=== PATIENT | female | born 1955 | race Caucasian/White ===

== ENCOUNTER → 2016-12-26 | Outpatient (REF) | payer BC ==
[~2016-12-26] MED LIST: /CELE20CA; /ESOM40CA; /WARF25TA; /WARF5TA; MYLI40DR; PERC5TAB8; PERC7.5T8
== END ==
LOC: M SFHCPLAZ 12:17
PROVIDERS: ATTEND Internal Medicine
DX: R06.02 Shortness of breath (principal); Z98.84 Bariatric surgery status; Z79.890 Hormone replacement therapy; E78.00 Pure hypercholesterolemia, unspecified; E55.9 Vitamin D deficiency, unspecified; Z53.9 Procedure and treatment not carried out, unspecified reason

== ENCOUNTER → 2017-01-01 | Outpatient (CLI) | payer BC ==
[2017-01-01 07:27] LABS: MEAN CORPUSCULAR HEMOGLOBIN 29.1 pg (27.0-33.0); MEAN CORPUSCULAR HGB CONC 32.4 g/dl (32.0-36.5); MEAN CORPUSCULAR VOLUME 89.9 fl (80.0-96.0); RED CELL DISTRIBUTION WIDTH 13.5 % (11.5-14.5)
--- NOTE | 2017-01-01 07:33 | REP ---
Clinical: Dyspnea on exertion . Comparison: 06/16/2015 . Technique: PA and lateral. Findings: The mediastinum and cardiac silhouette are normal. The lung hernandez are clear and without acute consolidation, effusion, or pneumothorax. Chronic dextroconvex scoliosis again noted. Impression: 1. No acute cardiopulmonary process. Signed by Yossi Calles MD 01/01/2017 07:24 A
[2017-01-01 07:48] LABS: ALBUMIN 3.8 GM/DL (3.2-5.2); ALBUMIN/GLOBULIN RATIO 1.46 (1.00-1.93); ALKALINE PHOSPHATASE 76 U/L (45-117); ALT/SGPT 29 U/L (12-78); ANION GAP 4 MEQ/L (8-16); AST/SGOT 19 U/L (15-37); BILIRUBIN,TOTAL 0.5 MG/DL (0.2-1.0); BLOOD UREA NITROGEN 17 MG/DL (7-18); CARBON DIOXIDE LEVEL 30 MEQ/L (21-32); CHLORIDE LEVEL 105 MEQ/L (98-107); CHOLESTEROL LEVEL 236 MG/DL (<200); CREATININE FOR GFR 0.74 MG/DL (0.55-1.02); GLOMERULAR FILTRATION RATE > 60.0 (>51); GLUCOSE, FASTING 88 MG/DL (70-105); MAGNESIUM LEVEL 2.2 MG/DL (1.8-2.4); SODIUM LEVEL 139 MEQ/L (136-145); TOTAL PROTEIN 6.4 GM/DL (6.4-8.2); TRIGLYCERIDES LEVEL 69 MG/DL (<150)
[2017-01-01 10:09] LABS: FOLATE > 24.0 NG/ML; VITAMIN B12 LEVEL 1045 PG/ML
== END ==
LOC: M LAB 06:42
PROVIDERS: ATTEND Internal Medicine
DX: E55.9 Vitamin D deficiency, unspecified (principal); Z98.84 Bariatric surgery status; Z79.890 Hormone replacement therapy; E78.00 Pure hypercholesterolemia, unspecified; R06.09 Other forms of dyspnea

== ENCOUNTER → 2017-02-05 | Outpatient (CLI) | payer BC ==
[~2017-02-05] MED LIST changes: +ASPI81TA85 PO; +BUPR150T3; +BUPR300T34; +GABA600T; +LANS30CA; +MELO15TA4; +PREM0.3T2; +TRAM50TA2
--- NOTE | 2017-02-05 09:46 | REPMRS ---
Patient History The patient states she had a clinical breast exam in 2015. Patient is postmenopausal. Family history of endometrial cancer in mother at age 60. Taking estrogen for 5 years. Digital Mammo Screening Bilat: February 05, 2017 - Exam #: [id number] Bilateral CC and MLO view(s) were taken. Technologist: Bea Ferrara, Technologist Prior study comparison: May 28, 2015, digital woman screen mammo, performed at [facility]. September 12, 2013, bilateral digital mammo screening bilat performed at [facility]. April 19, 2012, bilateral digital mammo screening bilat performed at [facility]. FINDINGS: There are scattered fibroglandular densities. There has been no change in the appearance of the mammogram from the prior studies. There is a mild amount of scattered fibroglandular density which is fairly symmetric. There is no interval development of dominant mass, architectural distortion, or clustered microcalcification suggestive of malignancy. ASSESSMENT: BI-RADS/ACR category 1 mammogram. Negative. Recommendation Routine screening mammogram in 1 year (for women over age 40). This mammogram was interpreted with the aid of an FDA-approved computer-aided dectection system. Electronically Signed By: Doe Wheeler MD 02/05/17 0946
== END ==
LOC: M RAD 08:59
PROVIDERS: ATTEND Nurse Practitioner Women's Health
DX: Z12.31 Encounter for screening mammogram for malignant neoplasm of breast (principal)

== ENCOUNTER 2017-04-22 06:32 | Emergency (ER) | payer BC ==
[~2017-04-22] VITALS: Ht 172.7 cm; Wt 84.1 kg
[~2017-04-22 06:32] MED LIST changes: -ASPI81TA85 PO; -BUPR150T3; -BUPR300T34; -GABA600T; -LANS30CA; -MELO15TA4; -PREM0.3T2; -TRAM50TA2
[2017-04-22] MEDS ORDERED: TRAM50TA2 (06:49)
[2017-04-22] MEDS ORDERED: LANS30CA (06:49)
[2017-04-22] MEDS ORDERED: GABA600T (06:49)
[2017-04-22] MEDS ORDERED: BUPR300T34 (06:49)
[2017-04-22] MEDS ORDERED: BUPR150T3 (06:49)
[2017-04-22] MEDS ORDERED: MELO15TA4 (06:49)
[2017-04-22] MEDS ORDERED: PREM0.3T2 (06:49)
[2017-04-22 07:20] LABS: BASO # 0.1 10^3/uL (0.0-0.2); BASO % 1.1 % (0.0-1.0); EOS # 0.3 10^3/uL (0.0-0.50); EOS % 5.1 % (0.0-3.0); IMMATURE GRANULOCYTE % 0.2 % (0-0); LYMPH # 1.8 10^3/uL (1.5-4.5); MEAN CORPUSCULAR HEMOGLOBIN 28.6 pg (27.0-33.0); MEAN CORPUSCULAR VOLUME 89.2 fl (80.0-96.0); MONO # 0.6 10^3/uL (0.0-0.8); MONO % 10.3 % (0.0-5.0); NEUTROPHILS # 2.6 10^3/uL (1.8-7.7); NEUTROPHILS % 49.3 % (36.0-66.0); PLATELET COUNT, AUTOMATED 311 10^3/uL (150-450); RED CELL DISTRIBUTION WIDTH 13.8 % (11.5-14.5); WHITE BLOOD COUNT 5.3 10^3/uL (4.0-10.0)
[2017-04-22 07:29] LABS: ADD MANUAL DIFFER NO; DIFF SLIDE NUMBER 108
[2017-04-22 07:45] LABS: ANION GAP 3 MEQ/L (8-16); BLOOD UREA NITROGEN 15 MG/DL (7-18); CALCIUM LEVEL 9.1 MG/DL (8.5-10.1); CARBON DIOXIDE LEVEL 31 MEQ/L (21-32); CHLORIDE LEVEL 107 MEQ/L (98-107); CREATININE FOR GFR 0.74 MG/DL (0.55-1.02); GLOMERULAR FILTRATION RATE > 60.0 (>51); GLUCOSE, FASTING 87 MG/DL (70-105); POTASSIUM SERUM 3.8 MEQ/L (3.5-5.1); SODIUM LEVEL 141 MEQ/L (136-145)
[2017-04-22] MEDS ORDERED: ASPIRIN 81 MG CHEW TABLET PO ONE (08:00)
--- NOTE | 2017-04-22 08:33 | REP ---
PA and lateral chest: Comparison is 01/01/2017. Lung hernandez are clear. Cardiac size is normal. The isai and mediastinum are unremarkable. There is demineralization and thoracic scoliosis convex right, unchanged. Impression: No acute cardiopulmonary findings. Thoracic scoliosis. Signed by Skyelr Morales MD 04/22/2017 08:25 A
[2017-04-22] MEDS ORDERED: ASPI81TA85 PO (09:17)
[2017-04-22 13:40] VITALS: BP 121/70
--- NOTE | 2017-04-23 07:34 | ECGEPIP ---
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
--- NOTE | 2017-04-23 07:52 | ECGEPIP ---
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
== END 2017-04-22 13:56 | disposition home or self-care (01) ==
LOC: M ED 06:32
DX: R07.9 Chest pain, unspecified (principal); Z98.84 Bariatric surgery status

== ENCOUNTER → 2017-06-04 | Outpatient (CLI) | payer BC ==
[~2017-06-04] MED LIST changes: +ASPI81TA85 PO; +BUPR150T3; +BUPR300T34; +GABA600T; +LANS30CA; +MELO15TA4; +METHACHOLINE KIT (J7674) INH ONE; +PREM0.3T2; +TRAM50TA2
--- NOTE | 2017-06-04 09:25 | PFTRPT ---
Tech: Jaskaran PALM RRT Age: 61 Sex: Female Race: Height: 68.00 Inches Weight: 195.00 Lbs BSA: 2.02 Diagnosis: R06.02 PULMONARY FUNCTION REPORT ORDERING PROVIDER: THAO Blank DATE OF SERVICE: 06/04/17 SPIROMETRY: Excellent technical quality. The forced vital capacity is reduced. The FEV1 is in proportion. The obstructive index is, therefore, normal. FLOW VOLUME LOOP: The expiratory limb of the flow volume loop suggests some nonspecific limitation. LUNG VOLUMES: The total lung capacity is normal. The residual volume suggests a mild degree of air trapping. DIFFUSION CAPACITY: The diffusion capacity is normal. HEMOGLOBIN: No hemoglobin is available for correction. AIRWAY MECHANICS: Airway resistance and conductance are normal. IMPRESSION: Nonspecific limitation, as outlined above. Please correlate clinically MTDD
--- NOTE | 2017-06-04 10:02 | PFTRPT ---
Tech: Jaskaran PALM RRT Age: 61 Sex: Female Race: Height: 68.00 Inches Weight: 195.00 Lbs BSA: 2.02 Diagnosis: R06.02 METHACHOLINE CHALLENGE REPORT ORDERING PROVIDER: THAO Blank DATE OF SERVICE: 06/04/17 INTERPRETATION: The study was of excellent technical quality. Under protocol, methacholine was administered. At a dose of 2.5 mg (13.875 CDUs), a 23% decline in the FEV1 was noted. The PC20 of 1.23 is significant. Flow rates returned to baseline post bronchodilator administration. IMPRESSION: Positive methacholine challenge study MTDD
== END ==
LOC: M CARPUL 08:46
PROVIDERS: ATTEND Nurse Practitioner Adult Health
DX: R06.02 Shortness of breath (principal)
CPT/HCPCS: 94010; 94070; 94726; 94729; J7674

== ENCOUNTER → 2018-02-15 | Outpatient (CLI) | payer BC ==
[2018-02-15 06:55] LABS: BASO # 0.1 10^3/uL (0.0-0.2); BASO % 0.9 % (0.0-1.0); EOS # 0.4 10^3/uL (0.0-0.50); EOS % 6.2 % (0.0-3.0); HEMATOCRIT 41.1 % (36.0-47.0); HEMOGLOBIN 13.6 g/dl (12.0-15.5); IMMATURE GRANULOCYTE % 0.3 % (0-3.0); LYMPH % 34.3 % (24.0-44.0); MEAN CORPUSCULAR HEMOGLOBIN 30.1 pg (27.0-33.0); MEAN CORPUSCULAR HGB CONC 33.1 g/dl (32.0-36.5); MEAN CORPUSCULAR VOLUME 90.9 fl (80.0-96.0); MONO # 0.6 10^3/uL (0.0-0.8); MONO % 10.4 % (0.0-5.0); NEUTROPHILS # 2.8 10^3/uL (1.8-7.7); NEUTROPHILS % 47.9 % (36.0-66.0); PLATELET COUNT, AUTOMATED 307 10^3/uL (150-450); RED BLOOD COUNT 4.52 10^6/uL (4.00-5.40); RED CELL DISTRIBUTION WIDTH 13.6 % (11.5-14.5); WHITE BLOOD COUNT 5.8 10^3/uL (4.0-10.0)
[2018-02-15 07:17] LABS: ESTIMATED AVERAGE GLUCOSE 103 MG/DL (60-110); HEMOGLOBIN A1c 5.2 %
[2018-02-15 07:23] LABS: ERYTHROCYTE SEDIMENTATION RATE 6 mm/hr (0-30)
[2018-02-15 07:24] LABS: VITAMIN B12 LEVEL 547 PG/ML
[2018-02-15 07:25] LABS: ALBUMIN 3.8 GM/DL (3.2-5.2); ALBUMIN/GLOBULIN RATIO 1.27 (1.00-1.93); ALKALINE PHOSPHATASE 74 U/L (45-117); ALT/SGPT 31 U/L (12-78); ANION GAP 7 MEQ/L (8-16); AST/SGOT 21 U/L (7-37); BILIRUBIN,TOTAL 0.7 MG/DL (0.2-1.0); BLOOD UREA NITROGEN 14 MG/DL (7-18); CALCIUM LEVEL 9.1 MG/DL (8.8-10.2); CARBON DIOXIDE LEVEL 29 MEQ/L (21-32); CHLORIDE LEVEL 107 MEQ/L (98-107); CREATININE FOR GFR 0.77 MG/DL (0.55-1.30); GLOMERULAR FILTRATION RATE > 60.0 (>45); GLUCOSE, FASTING 91 MG/DL (70-100); RHEUMATOID FACTOR QUANT < 10.0 IU/ML (<15.0); SODIUM LEVEL 143 MEQ/L (136-145); TOTAL PROTEIN 6.8 GM/DL (6.4-8.2)
[2018-02-15 07:26] LABS: FOLATE > 24.0 NG/ML
[2018-02-15 14:47] LABS: ALBUMIN % 65.5 % (55.8-66.1); ALPHA-1-GLOBULIN % 4.5 % (2.9-4.9); ALPHA-2-GLOBULINS % 8.9 % (7.1-11.8)
[2018-02-15 14:48] LABS: ALBUMIN 4.45 GM/DL (3.29-5.55); ALPHA-1-GLOBULINS 0.31 GM/DL (0.17-0.41); ALPHA-2-GLOBULINS 0.61 GM/DL (0.42-0.99); BETA-1-GLOBULINS 0.48 GM/DL (0.28-0.60); BETA-1-GLOBULINS % 7.1 % (4.7-7.2); BETA-2-GLOBULINS 0.29 GM/DL (0.19-0.55); BETA-2-GLOBULINS % 4.2 % (3.2-6.5); GAMMA GLOBULIN % 9.8 % (11.1-18.8); GAMMA GLOBULINS 0.67 GM/DL (0.65-1.58)
[2018-02-16 11:10] LABS: DRVV SCREEN 38.2 SEC
[2018-02-16 11:13] LABS: PTT LUPUS TYPE ANTICOAG SCREEN 0.9 (0-1.2)
[2018-02-25 00:13] LABS: ANTINUCLEAR ANTIBODIES DIRECT Negative (Negative); CERULOPLASMIN 30.4 mg/dL (19.0-39.0); COPPER PLASMA 101 ug/dL (72-166); LEAD BLOOD ADULT 2 ug/dL (0-19); VITAMIN B1 LEVEL WHOLE BLOOD 163.7 nmol/L (66.5-200.0); VITAMIN E(ALPHA TOCOPHEROL) 13.2 mg/L (9.0-29.0)
== END ==
LOC: M LAB 06:24
DX: G31.89 Other specified degenerative diseases of nervous system (principal)
CPT/HCPCS: 82525

== ENCOUNTER 2018-04-21 13:38 | Emergency (ER) | payer OTHER, BC ==
[2018-04-21 14:25] LABS: BASO # 0.1 10^3/uL (0.0-0.2); BASO % 0.9 % (0.0-1.0); EOS # 0.2 10^3/uL (0.0-0.50); EOS % 3.7 % (0.0-3.0); HEMATOCRIT 36.8 % (36.0-47.0); HEMOGLOBIN 12.1 g/dl (12.0-15.5); IMMATURE GRANULOCYTE % 0.2 % (0-3.0); LYMPH # 1.3 10^3/uL (1.5-4.5); LYMPH % 23.6 % (24.0-44.0); MEAN CORPUSCULAR HEMOGLOBIN 28.9 pg (27.0-33.0); MEAN CORPUSCULAR HGB CONC 32.9 g/dl (32.0-36.5); MONO # 0.5 10^3/uL (0.0-0.8); MONO % 8.7 % (0.0-5.0); NEUTROPHILS # 3.4 10^3/uL (1.8-7.7); NEUTROPHILS % 62.9 % (36.0-66.0); PLATELET COUNT, AUTOMATED 271 10^3/uL (150-450); RED BLOOD COUNT 4.18 10^6/uL (4.00-5.40); RED CELL DISTRIBUTION WIDTH 13.6 % (11.5-14.5); WHITE BLOOD COUNT 5.4 10^3/uL (4.0-10.0)
[2018-04-21 14:51] LABS: ALBUMIN 3.4 GM/DL (3.2-5.2); ALBUMIN/GLOBULIN RATIO 1.17 (1.00-1.93); ALKALINE PHOSPHATASE 153 U/L (45-117); ALT/SGPT 157 U/L (12-78); ANION GAP 7 MEQ/L (8-16); AST/SGOT 108 U/L (7-37); BILIRUBIN,TOTAL 0.6 MG/DL (0.2-1.0); BLOOD UREA NITROGEN 15 MG/DL (7-18); CALCIUM LEVEL 8.7 MG/DL (8.8-10.2); CARBON DIOXIDE LEVEL 28 MEQ/L (21-32); CHLORIDE LEVEL 108 MEQ/L (98-107); CREATININE FOR GFR 0.72 MG/DL (0.55-1.30); GLOMERULAR FILTRATION RATE > 60.0 (>45); GLUCOSE, FASTING 81 MG/DL (70-100); POTASSIUM SERUM 3.6 MEQ/L (3.5-5.1); SODIUM LEVEL 143 MEQ/L (136-145); TOTAL PROTEIN 6.3 GM/DL (6.4-8.2)
[2018-04-21 14:59] LABS: HEPATITIS B SURFACE ANTIBODY NEGATIVE (POSITIVE)
[2018-04-21 15:09] LABS: HEPATITIS B SURFACE ANTIGEN NEGATIVE (NEGATIVE)
[2018-04-21 15:37] LABS: HIV SCREEN CENTAUR EXPOSED NEGATIVE (NEGATIVE)
[2018-04-21 15:38] LABS: HEPATITIS C VIRUS ABY INDEX 0.1 INDEX (<0.8)
== END 2018-04-21 18:33 | disposition home or self-care (01) ==
LOC: M ED 13:38
DX: S61.032A Puncture wound without foreign body of left thumb without damage to nail, initial encounter (principal); W46.0XXA Contact with hypodermic needle, initial encounter; Y92.89 Other specified places as the place of occurrence of the external cause; Y99.0 Civilian activity done for income or pay; I10 Essential (primary) hypertension; J45.909 Unspecified asthma, uncomplicated; M19.90 Unspecified osteoarthritis, unspecified site; Z79.899 Other long term (current) drug therapy; Z79.82 Long term (current) use of aspirin; Z88.0 Allergy status to penicillin; Z88.8 Allergy status to other drugs, medicaments and biological substances
CPT/HCPCS: 80053

== ENCOUNTER 2018-06-17 08:50 | Day surgery (SDC) | payer BC ==
[~2018-06-17 08:50] MED LIST changes: -/CELE20CA; -/ESOM40CA; -/WARF25TA; -/WARF5TA; -ASPI81TA85 PO; -BUPR150T3; -BUPR300T34; -GABA600T; -LANS30CA; -MELO15TA4; -METHACHOLINE KIT (J7674) INH ONE; +MIDAZOLAM INJ 2 MG/2 ML VIAL (J2250) As Ordered; -MYLI40DR; +OFLOXACIN 0.3 % (OCUFLOX) OPTH SOL 5ML OS; -PERC5TAB8; -PERC7.5T8; +PHENYLEPHRINE 2.5% OPHTH SOL 2ML OS; -PREM0.3T2; +PROPARACAINE 0.5% OPHTH SOL 15ML OS; -TRAM50TA2; +TROPICAMIDE 1% OPHTH SOLN 2ML OS; +fentaNYL 100 MCG/2 ML INJECTION (J3010) As Ordered
[2018-06-17] MEDS: POVIDONE-IODINE 5% OPHTH PREP SOL 30ML As Ordered (11:20)
[2018-06-17] MEDS: LIDOCAINE 0.75%/EPINEPHRINE 0.025% IN BSS 1ML SYR INTRACAMERAL (OR ONLY) As Ordered (11:20)
[2018-06-17] MEDS: BALANCED SALT IRRIGATION SOLUTION 500ML BAG (FOR OR EYE MACHINE) As Ordered (11:20)
[2018-06-17] MEDS ORDERED: PROPOFOL 200 MG/20 ML VIAL As Ordered (11:23)
[2018-06-17] MEDS ORDERED: LIDOCAINE 2% INJ 100 MG/5 ML SDV (FOR ANES.) As Ordered (11:23)
[2018-06-17] MEDS ORDERED: ACETAMINOPHEN TAB 650MG DOSE (2X325MG) PO (11:45)
[2018-06-17] MEDS ORDERED: ONDANSETRON 4MG/2ML VIAL (J2405) IV (11:45)
== END 2018-06-17 12:09 | disposition home or self-care (01) ==
LOC: M SDC 08:50
DX: H25.12 Age-related nuclear cataract, left eye (principal); J45.909 Unspecified asthma, uncomplicated; F41.9 Anxiety disorder, unspecified; F32.9 Major depressive disorder, single episode, unspecified; Z87.891 Personal history of nicotine dependence; Z88.0 Allergy status to penicillin; Z88.4 Allergy status to anesthetic agent; Z79.899 Other long term (current) drug therapy
CPT/HCPCS: 66984

== ENCOUNTER 2018-07-01 08:05 | Day surgery (SDC) | payer BC ==
[2018-07-01] MEDS: PHENYLEPHRINE 2.5% OPHTH SOL 2ML OD (08:44)
[2018-07-01] MEDS: TROPICAMIDE 1% OPHTH SOLN 2ML OD (08:45)
[2018-07-01] MEDS: PROPARACAINE 0.5% OPHTH SOL 15ML OD (08:45)
[2018-07-01] MEDS: OFLOXACIN 0.3 % (OCUFLOX) OPTH SOL 5ML OD (08:45)
[2018-07-01] MEDS ORDERED: PROPOFOL 200 MG/20 ML VIAL As Ordered (09:16)
[2018-07-01] MEDS ORDERED: LIDOCAINE 2% INJ 100 MG/5 ML SDV (FOR ANES.) As Ordered (09:16)
[2018-07-01] MEDS: POVIDONE-IODINE 5% OPHTH PREP SOL 30ML As Ordered (09:32)
[2018-07-01] MEDS: BALANCED SALT IRRIGATION SOLUTION 500ML BAG (FOR OR EYE MACHINE) As Ordered (09:38)
[2018-07-01] MEDS: LIDOCAINE 0.75%/EPINEPHRINE 0.025% IN BSS 1ML SYR INTRACAMERAL (OR ONLY) As Ordered (09:38)
[2018-07-01] MEDS: DUOVISC (0.50ML VISCOAT/0.55ML PROVISC) OPHTH KIT As Ordered (09:39)
[2018-07-01] MEDS: CEFUROXIME 1MG/0.1ML INTRACAMERAL INJ As Ordered (09:40)
[2018-07-01] MEDS ORDERED: ONDANSETRON 4MG/2ML VIAL (J2405) IV (10:15)
== END 2018-07-01 10:33 | disposition home or self-care (01) ==
LOC: M SDC 08:05
DX: H25.11 Age-related nuclear cataract, right eye (principal); J45.909 Unspecified asthma, uncomplicated; K21.9 Gastro-esophageal reflux disease without esophagitis; F41.9 Anxiety disorder, unspecified; F32.9 Major depressive disorder, single episode, unspecified; Z87.891 Personal history of nicotine dependence; Z88.0 Allergy status to penicillin; Z88.8 Allergy status to other drugs, medicaments and biological substances; Z79.899 Other long term (current) drug therapy
CPT/HCPCS: 66984

== ENCOUNTER → 2018-10-12 | Outpatient (CLI) | payer BC ==
[~2018-10-12] MED LIST changes: +/CELE20CA; +/ESOM40CA; +/WARF25TA; +/WARF5TA; +ASPI81TA85 PO; +BUPR150T3 PO; +BUPR300T34 PO; +CALC600T60 PO; +GABA600T4 PO; +LANS30CA; +MELO15TA28 PO; -MIDAZOLAM INJ 2 MG/2 ML VIAL (J2250) As Ordered; +MULT1TAB10 PO; +MYLI40DR; -OFLOXACIN 0.3 % (OCUFLOX) OPTH SOL 5ML OS; +OMEP10CASR PO; +PERC5TAB8; +PERC7.5T8; -PHENYLEPHRINE 2.5% OPHTH SOL 2ML OS; +PREM0.3T2 PO; -PROPARACAINE 0.5% OPHTH SOL 15ML OS; +TRAM50TA2 PO; -TROPICAMIDE 1% OPHTH SOLN 2ML OS; -fentaNYL 100 MCG/2 ML INJECTION (J3010) As Ordered
[2018-10-12 11:00] LABS: BLOOD UREA NITROGEN 16 MG/DL (7-18); CARBON DIOXIDE LEVEL 30 MEQ/L (21-32); CHLORIDE LEVEL 108 MEQ/L (98-107); CREATININE FOR GFR 0.67 MG/DL (0.55-1.30); GLOMERULAR FILTRATION RATE > 60.0 (>45); GLUCOSE, FASTING 83 MG/DL (70-100); POTASSIUM SERUM 4.2 MEQ/L (3.5-5.1); SODIUM LEVEL 142 MEQ/L (136-145)
[2018-10-12 11:01] LABS: ALBUMIN 3.7 GM/DL (3.2-5.2); ALT/SGPT 32 U/L (12-78); BILIRUBIN,TOTAL 0.5 MG/DL (0.2-1.0); CHOLESTEROL LEVEL 229 MG/DL (<200); CHOLESTEROL RISK RATIO 2.602 (<5); HDL CHOLESTEROL 88 MG/DL (>40); LDL CHOLESTEROL 130 MG/DL (<100); NON-HDL-C 141 MG/DL; TOTAL PROTEIN 6.3 GM/DL (6.4-8.2); TRIGLYCERIDES LEVEL 56 MG/DL (<150)
[2018-10-13 11:04] LABS: HEPATITIS C VIRUS ABY INDEX 0.1 INDEX (<0.8)
== END ==
LOC: M LAB 09:17
PROVIDERS: ATTEND Internal Medicine
DX: Z11.59 Encounter for screening for other viral diseases (principal); E78.00 Pure hypercholesterolemia, unspecified

== ENCOUNTER → 2018-12-20 | Outpatient (CLI) | payer BC ==
[~2018-12-20] MED LIST changes: -/CELE20CA; -/ESOM40CA; -/WARF25TA; -/WARF5TA; +CELE1CAP4; +COUM1TAB17; +COUM1TAB18; +NEXI1CAP3
--- NOTE | 2018-12-21 04:04 | REP ---
Clinical: Cough Comparison: 05/20/2017 . Technique: PA and lateral. Findings: The mediastinum and cardiac silhouette are normal. The lung hernandez are clear and without acute consolidation, effusion, or pneumothorax. The skeletal structures are intact and chronic dextroconvex scoliosis is appreciated along with age-related osteopenia and degenerative changes. Impression: 1. No acute cardiopulmonary process. Electronically Signed by Yossi Calles MD 12/21/2018 03:55 A
== END ==
LOC: M SMT 14:27
PROVIDERS: ATTEND Physician Assistant Medical
DX: J06.9 Acute upper respiratory infection, unspecified (principal)

== ENCOUNTER → 2019-03-24 | Outpatient (CLI) | payer BC ==
[2019-03-24 07:02] LABS: HEMATOCRIT 38.8 % (36.0-47.0); HEMOGLOBIN 12.3 g/dl (12.0-15.5); MEAN CORPUSCULAR HEMOGLOBIN 27.6 pg (27.0-33.0); MEAN CORPUSCULAR HGB CONC 31.7 g/dl (32.0-36.5); PLATELET COUNT, AUTOMATED 334 10^3/uL (150-450); RED BLOOD COUNT 4.46 10^6/uL (4.00-5.40); WHITE BLOOD COUNT 6.5 10^3/uL (4.0-10.0)
[2019-03-24 07:33] LABS: ALBUMIN 3.8 GM/DL (3.2-5.2); ALT/SGPT 30 U/L (12-78); BILIRUBIN,TOTAL 0.6 MG/DL (0.2-1.0); BLOOD UREA NITROGEN 15 MG/DL (7-18); CALCIUM LEVEL 9.1 MG/DL (8.8-10.2); CARBON DIOXIDE LEVEL 29 MEQ/L (21-32); CHLORIDE LEVEL 108 MEQ/L (98-107); CHOLESTEROL LEVEL 219 MG/DL (<200); CHOLESTEROL RISK RATIO 2.354 (<5); CREATININE FOR GFR 0.76 MG/DL (0.55-1.30); GLOMERULAR FILTRATION RATE > 60.0 (>45); GLUCOSE, FASTING 85 MG/DL (70-100); HDL CHOLESTEROL 93 MG/DL (>40); LDL CHOLESTEROL 112 MG/DL (<100); NON-HDL-C 126 MG/DL; POTASSIUM SERUM 4.1 MEQ/L (3.5-5.1); SODIUM LEVEL 142 MEQ/L (136-145); TOTAL PROTEIN 6.2 GM/DL (6.4-8.2); TRIGLYCERIDES LEVEL 72 MG/DL (<150)
[2019-03-24 08:14] LABS: TOTAL 25(OH) VITAMIN D 42.5 NG/ML (30.0-100.0)
== END ==
LOC: M LAB 06:22
PROVIDERS: ATTEND Internal Medicine
DX: Z98.84 Bariatric surgery status (principal)

== ENCOUNTER → 2019-06-13 | Outpatient (CLI) | payer BC ==
--- NOTE | 2019-06-13 11:47 | REPPI ---
Clinical: Lumbago with left-sided sciatica. Technique: AP, lateral, bilateral oblique and coned-down views of the lumbosacral spine. Findings: Osteopenia and generalized multilevel degenerative changes including chronic-appearing levoconvex scoliosis, osteophytosis, endplate sclerosis, and hypertrophic facet changes are noted. Sclerosis and disc space narrowing most notable at L5-S1. No acute fracture / compression injury or subluxation. Impression: Osteopenia and multilevel degenerative changes primarily involving L5-S1. Electronically Signed by Yossi Calles MD 06/13/2019 11:38 A
== END ==
LOC: M PLAIMG 10:42
PROVIDERS: ATTEND Physician Assistant Medical
DX: M54.42 Lumbago with sciatica, left side (principal); M85.88 Other specified disorders of bone density and structure, other site; M51.37 Other intervertebral disc degeneration, lumbosacral region

== ENCOUNTER → 2020-05-23 | Outpatient (CLI) | payer BC ==
[~2020-05-23] MED LIST changes: -ASPI81TA85 PO; +ASPI81TA86 PO; -BUPR300T34 PO; +BUPR300T92 PO
--- NOTE | 2020-05-23 11:36 | REPMRS ---
Patient History The patient states she has not had a clinical breast exam in over a year. Patient is postmenopausal. Family history of endometrial cancer at age 60 in mother. Taking estrogen for 8 years. 3D TOMOSYNTHESIS WAS PERFORMED. [facility] lifetime risk for breast cancer is 5.4%. Volpara breast density a. Digital Woman Screen Mammo: May 23, 2020 - Exam #: [id number] Bilateral CC and MLO view(s) were taken. Technologist: Solange Machuca, Technologist Prior study comparison: February 05, 2017, bilateral digital mammo screening bilat, performed at [facility]. May 28, 2015, digital woman screen mammo performed at [facility]. FINDINGS: There are scattered fibroglandular densities. There has been no change in the appearance of the mammogram from the prior studies. There is a mild amount of residual fibroglandular tissue which is fairly symmetric. There is no interval development of dominant mass, architectural distortion, or clustered microcalcification suggestive of malignancy. Assessment: BI-RADS/ACR category 1 mammogram. Negative Mammogram. Recommendation Routine screening mammogram in 1 year (for women over age 40). This mammogram was interpreted with the aid of an FDA-approved computer-aided dectection system. Electronically Signed By: Skyler Marshall MD 05/23/20 [id number]
--- NOTE | 2020-05-23 13:59 | DEXA ---
INDICATION: M85.80 OSTEOPENIA. COMPARISON: 05/28/2015, 12/29/2003. TECHNIQUE: Bone density was measured using dual-energy x-ray absorptiometry (DEXA). FINDINGS: AP SPINE L1-L4 BMD 0.926 g/cm2 Young Adult T-Score -2.2 Age Matched Z-Score -0.7. IMPRESSION: There is low bone density of the spine. The density of the spine has decreased 4.5% since the initial exam on 12/29/2003. The density of the spine increased 5.1% since most recent exam on 05/28/2015. FOLLOW-UP: Recommendation for the next bone density exam: 2 years. <Electronically signed by Skyler Marshall > 05/23/20 2594
== END ==
LOC: M WHC 10:31
PROVIDERS: ATTEND Internal Medicine
DX: Z12.31 Encounter for screening mammogram for malignant neoplasm of breast (principal); M85.80 Other specified disorders of bone density and structure, unspecified site

== ENCOUNTER → 2020-06-04 | Outpatient (CLI) | payer SELFPAY | LOC: M LABSMTC 11:08 | PROVIDERS: ATTEND Pediatrics | DX: Z20.828 Contact with and (suspected) exposure to other viral communicable diseases (principal) ==

== ENCOUNTER → 2020-06-26 | Outpatient (CLI) | payer BC ==
[2020-06-26 07:13] LABS: HEMATOCRIT 41.7 % (36.0-47.0); HEMOGLOBIN 12.8 g/dl (12.0-15.5); MEAN CORPUSCULAR HEMOGLOBIN 28.3 pg (27.0-33.0); MEAN CORPUSCULAR HGB CONC 30.7 g/dl (32.0-36.5); MEAN CORPUSCULAR VOLUME 92.1 fl (80.0-96.0); PLATELET COUNT, AUTOMATED 391 10^3/uL (150-450); RED BLOOD COUNT 4.53 10^6/uL (4.00-5.40); WHITE BLOOD COUNT 7.9 10^3/uL (4.0-10.0)
[2020-06-26 07:53] LABS: ALBUMIN 3.7 GM/DL (3.2-5.2); ALT/SGPT 22 U/L (12-78); BILIRUBIN,TOTAL 0.5 MG/DL (0.2-1.0); BLOOD UREA NITROGEN 23 MG/DL (7-18); CALCIUM LEVEL 9.2 MG/DL (8.8-10.2); CARBON DIOXIDE LEVEL 28 MEQ/L (21-32); CHLORIDE LEVEL 109 MEQ/L (98-107); CHOLESTEROL LEVEL 230 MG/DL (<200); CHOLESTEROL RISK RATIO 2.875 (<5); CREATININE FOR GFR 1.34 MG/DL (0.55-1.30); GLOMERULAR FILTRATION RATE 42.5 (>45); GLUCOSE, FASTING 79 MG/DL (70-100); HDL CHOLESTEROL 80 MG/DL (>40); LDL CHOLESTEROL 122 MG/DL (<100); NON-HDL-C 150 MG/DL; POTASSIUM SERUM 4.2 MEQ/L (3.5-5.1); SODIUM LEVEL 141 MEQ/L (136-145); TOTAL PROTEIN 6.8 GM/DL (6.4-8.2); TRIGLYCERIDES LEVEL 140 MG/DL (<150)
[2020-06-26 08:59] LABS: VITAMIN B12 LEVEL 357 PG/ML
[2020-06-26 09:00] LABS: FOLATE > 24.0 NG/ML
== END ==
LOC: M LAB 06:16
PROVIDERS: ATTEND Internal Medicine
DX: E78.00 Pure hypercholesterolemia, unspecified (principal); Z98.84 Bariatric surgery status

== ENCOUNTER → 2020-07-11 | Outpatient (CLI) | payer BC ==
--- NOTE | 2020-07-11 09:00 | REP ---
INDICATION: HTN EVAL FOR KEVIN COMPARISON: None TECHNIQUE: Real time cantu scale ultrasound examination using curved array transducer followed by color Doppler evaluation of the renal vasculature. FINDINGS: Right kidney is normal in reniform shape without hydronephrosis and measures 11.1 x 5.5 x 4.4 cm. A 13 mm nonobstructing calculus identified in the lower pole. Left kidney is normal in reniform shape measuring 11.8 x 6.3 x 5.8 cm and demonstrates moderate grade 3 hydronephrosis. No obvious nephrolithiasis. Color Doppler evaluationis limited due to interposed bowel gas obscuring the left main renal artery. Left intrarenal vasculature demonstrates abnormal tardus parvus wave pattern and increased acceleration times which are nonspecific in light of the limited evaluation and underlying hydronephrosis. Peak aortic velocity: 95 centimeters/second RIGHT KIDNEY Renal arterial velocity: 124 centimeters/second Renal-aortic ratio: 1.3 Intrarenal resistive indices: 0.67-0.72 Intrarenal acceleration times: 0.040-0.058 LEFT KIDNEY Renal arterial velocity: Gassed out Renal-aortic ratio: -- Intrarenal resistive indices: 0.66-0.80 Intrarenal acceleration times: 0.094-0.22 IMPRESSION: 1. Right kidney includes 13 mm nonobstructing lower pole calculus.. Right renal vasculature appears grossly normal and without evidence for renal arterial stenosis. 2. Left kidney demonstrates moderate, grade 3 hydronephrosis. Left renal vasculature is incompletely evaluated, but intrarenal vascular evaluation demonstrates findings which may be related to chronic vascular insufficiency related to renal arterial stenosis as well as possibly related to chronic hydronephrosis. Further investigation may be warranted. <Electronically signed by Yossi Calles > 07/11/20 [id number]
== END ==
LOC: M RAD 07:51
PROVIDERS: ATTEND Internal Medicine
DX: I10 Essential (primary) hypertension (principal)

== ENCOUNTER → 2020-07-24 | Outpatient (REF) | payer BC ==
[2020-07-24 13:40] LABS: APPEARANCE, URINE CLOUDY (CLEAR); BACTERIA, URINE AUTO NEGATIVE (NEGATIVE); BILIRUBIN, URINE AUTO NEGATIVE (NEGATIVE); BLOOD, URINE BLOOD 1+ (NEGATIVE); CALCIUM OXALATE CRYSTALS LARGE; COLOR, URINE YELLOW (YELLOW); GLUCOSE, URINE (UA) AUTO NEGATIVE (NEGATIVE); KETONE, URINE AUTO NEGATIVE (NEGATIVE); LEUKOCYTE ESTERASE, URINE AUTO TRACE (NEGATIVE); MUCUS, URINE SMALL (NEGATIVE); NITRITE, URINE AUTO NEGATIVE (NEGATIVE); PROTEIN, URINE AUTO NEGATIVE (NEGATIVE); RBC, URINE AUTO 38 /HPF (0-3); SPECIFIC GRAVITY URINE AUTO 1.021 (1.002-1.035); SQUAMOUS EPITHELIAL CELL UR AU 1 /HPF (0-6); UROBILINOGEN, URINE AUTO 0.2 mg/dL (0.0-2.0); WBC, URINE AUTO 3 /HPF (0-3)
== END ==
LOC: M SMT 13:12
PROVIDERS: ATTEND Nurse Practitioner Women's Health
DX: N13.30 Unspecified hydronephrosis (principal)

== ENCOUNTER → 2020-07-31 | Outpatient (CLI) | payer BC ==
[~2020-07-31] MED LIST changes: -BUPR150T3 PO; +BUPR150T4 PO; +ISOVUE-370 76% 100ML VIAL As Ordered ONE
--- NOTE | 2020-07-31 08:25 | REP ---
INDICATION: HYDRONEPHROSIS LABS 1ST CT 2ND. COMPARISON: None TECHNIQUE: Axial contrast, contrast-enhanced and delayed images from the lung bases to the pubic symphysis using 100 cc Isovue 370 intravenous contrast material. Coronal and sagittal reformations obtained. This CT examination was performed using the following dose reduction techniques: Automated exposure control, adjustment of mA and/or kv according to the patient's size, and the use of iterative reconstruction technique. FINDINGS: Right kidney includes 16 mm nonobstructing calculus in the renal pelvis along with few punctate 1 mm nonobstructing calculi and subtle 1 cm cyst. There is no evidence for right-sided perinephric stranding or hydroureteronephrosis. The left kidney includes 1.2 cm cyst without renal calculi, perinephric stranding or hydroureteronephrosis. Evaluation of the distal ureters and bladder including the ureterovesical junctions is completely obscured by beam hardening artifact from bilateral hip prostheses. Liver, spleen, pancreas, and bilateral adrenal glands are normal. Cholelithiasis noted without acute cholecystitis. The enteric system including stomach, small, and large bowel appears normal. No evidence for obstruction or acute inflammatory process. Normal terminal ileum and appendix are identified in the right lower quadrant. Sigmoid diverticulosis noted without obvious acute diverticulitis. The large bowel within the deep pelvis is incompletely evaluated due to beam hardening artifact as mentioned above. Visualized portions of the pelvis are unremarkable but limited due to metallic streak artifact. No ascites. No free air. No intraperitoneal or retroperitoneal adenopathy. Abdominal aorta and vasculature appear normal. Musculoskeletal structures are intact and without acute osseous abnormality. Lung bases are clear. IMPRESSION: 1. 16 mm nonobstructing right renal calculus and few 1 mm nonobstructing intrarenal calculi noted without hydroureteronephrosis. Small solitary bilateral renal cysts cannot definitively be classified as simple cysts and may warrant outpatient ultrasound evaluation. 2. Diverticulosis. 3. Cholelithiasis. 4. Evaluation of the pelvis is significantly limited due to metallic streak artifact from bilateral hip prostheses. <Electronically signed by Yossi Calles > 07/31/20 [id number]
[2020-07-31 08:49] LABS: CALCIUM LEVEL 8.8 MG/DL (8.8-10.2); CREATININE FOR GFR 1.15 MG/DL (0.55-1.30); GLOMERULAR FILTRATION RATE 50.7 (>45)
== END ==
LOC: M LAB 06:46
PROVIDERS: ATTEND Nurse Practitioner Women's Health
DX: N13.30 Unspecified hydronephrosis (principal)
CPT/HCPCS: 36415; 74178; 80048; Q9967

== ENCOUNTER → 2020-08-31 | Outpatient (CLI) | payer BC ==
[~2020-08-31] MED LIST changes: +CARV12.5 PO; +CYAN2500 SL; +D31000TA2 PO; -ISOVUE-370 76% 100ML VIAL As Ordered ONE; +NAPR-885 PO; +NASA1SPR; +PROAAER10 INH; +SING10TA32 PO; +THERTAB52 PO
--- NOTE | 2020-08-31 07:28 | REP ---
INDICATION: CALCULUS OF KIDNEY LABS 1ST EKG 2ND XR 3RD COMPARISON: 12/20/2018 TECHNIQUE: PA and lateral. FINDINGS: The mediastinum and cardiac silhouette are normal. The lung hernandez are clear and without acute consolidation, effusion, or pneumothorax. Chronic scoliosis again noted. IMPRESSION: No acute cardiopulmonary process. <Electronically signed by Yossi Calles > 08/31/20 0756
[2020-08-31 07:33] LABS: HEMOGLOBIN 11.7 g/dl (12.0-15.5); MEAN CORPUSCULAR HEMOGLOBIN 28.4 pg (27.0-33.0); MEAN CORPUSCULAR HGB CONC 30.8 g/dl (32.0-36.5); MEAN CORPUSCULAR VOLUME 92.2 fl (80.0-96.0); PLATELET COUNT, AUTOMATED 291 10^3/uL (150-450); RED BLOOD COUNT 4.12 10^6/uL (4.00-5.40); WHITE BLOOD COUNT 5.7 10^3/uL (4.0-10.0)
[2020-08-31 07:44] LABS: INR 1.01; PROTHROMBIN TIME 13.5 SECONDS (12.5-14.3)
[2020-08-31 07:45] LABS: PARTIAL THROMBOPLASTIN TIME 32.8 SECONDS (24.2-38.5)
[2020-08-31 08:00] LABS: CALCIUM LEVEL 8.9 MG/DL (8.8-10.2); CREATININE FOR GFR 1.05 MG/DL (0.55-1.30); GLOMERULAR FILTRATION RATE 56.3 (>45); POTASSIUM SERUM 4.1 MEQ/L (3.5-5.1)
[2020-08-31 08:01] LABS: APPEARANCE, URINE CLOUDY (CLEAR); BACTERIA, URINE AUTO 2+ (NEGATIVE); BILIRUBIN, URINE AUTO NEGATIVE (NEGATIVE); BLOOD, URINE BLOOD 3+ (NEGATIVE); COLOR, URINE YELLOW (YELLOW); GLUCOSE, URINE (UA) AUTO NEGATIVE (NEGATIVE); KETONE, URINE AUTO NEGATIVE (NEGATIVE); LEUKOCYTE ESTERASE, URINE AUTO TRACE (NEGATIVE); MUCUS, URINE SMALL (NEGATIVE); NITRITE, URINE AUTO NEGATIVE (NEGATIVE); PROTEIN, URINE AUTO 2+ mg/dL (NEGATIVE); RBC, URINE AUTO TNTC /HPF (0-3); SPECIFIC GRAVITY URINE AUTO 1.014 (1.002-1.035); SQUAMOUS EPITHELIAL CELL UR AU 1 /HPF (0-6); UROBILINOGEN, URINE AUTO 0.2 mg/dL (0.0-2.0); WBC, URINE AUTO 4 /HPF (0-3)
--- NOTE | 2020-08-31 08:48 | ECGEPIP ---
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
== END ==
LOC: M LAB 06:39
PROVIDERS: ATTEND Nurse Practitioner Women's Health
DX: Z01.818 Encounter for other preprocedural examination (principal); N20.0 Calculus of kidney; R94.31 Abnormal electrocardiogram [ECG] [EKG]

== ENCOUNTER → 2020-09-02 | Outpatient (CLI) | payer BC | LOC: M LABSMTC 08:13 | PROVIDERS: ATTEND Anesthesiology | DX: Z01.812 Encounter for preprocedural laboratory examination (principal); Z20.822 Contact with and (suspected) exposure to COVID-19 ==

== ENCOUNTER 2020-09-07 07:30 | Day surgery (SDC) | payer BC ==
[~2020-09-07] VITALS: Ht 170.2 cm; Wt 92.1 kg
[~2020-09-07 07:30] MED LIST changes: +LR 1,000 ML IV ONE; +TRIMETHOPRIM/SULFAMETHOXAZOLE 160 MG in D5W 250 ML IV ONE
--- OUTSIDE RECORDS SUMMARY | 2020-09-07 07:34 | CCD ---
Author Author [facility] Organization [facility] Address Unknown Phone Unavailable Care Team Providers Care Development Analyst Name Role Phone Marianela Wellington Unavailable PROBLEMS Type Condition ICD9-CM Code [id number] Code Onset Dates Condition S tatus SNOMED Code Notes Problem Osteopenia M85.80 Active [id number] She has ost eoporosis of her spine on bone density as of 2008, 2014, 2019. She is on estrogen replacement therapy, vitamin D and calcium supplementation. This will be followed. 2019 bone density study revealed a T score -2.2 in her spine. She will continue present therapy. Problem Elevated cholesterol E78.00 Active [id number] S he has a history of hypercholesterolemia. Her HDL is favorable and her LDL has not been adverse. Her recent lab work from June 2020 reflects adequate lipid control. Problem History of bariatric surgery Z98.84 Active 172 919639 She had bariatric surgery 2006 and is watched for complications. Vitamin B12 level was normal at 357 most recently in June 2020 and vitamin D level were last done in March 2019. Problem Essential hypertension I10 Active 36350158 She has developed elevated blood pressures as of June 2020. She is using some Sudafed and is also on nonsteroidal anti-inflammatory drug therapy. She should avoid Sudafed and her nonsteroidal but I instituted to carvedilol therapy in June 2020 which I think will help with her anxiety, control some palpitations she is experiencing, and hopefully control her blood pressure. I ordered a renal ult rasound because of her renal insufficiency and we will evaluate her renal blood flow also. Problem Osteoarthritis M19.90 Active [id number] She has moderate arthritis and was on on meloxicam but I switched her to naproxen with success in early 2018. She is also on Gabapentin and she is back on Wellbutrin instead of Cymbalta; she takes very occasional doses of tramadol. She has in the past taken a fair amount of [id number] NSAID therapy which I advised against, and given her decline in renal function and hypertension as of June 2020 I recommended that she limit her NSAID use. ESR and CBC normal in Fall 2014. She increased her gabapentin to 600 mg at bedtime as of April 2016. Problem Kidney stone on right side N20.0 Active 85664 007 Problem Hormone replacement therapy Z79.890 Active 8521 96453 She is on Prempro therapy and wishes to maintain that. I advised a slow taper in the past. She sees a gynecologic provider. Problem Anxiety associated with depression F41.8 Activ e 380311232 She is back on Wellbutrin and off Cymbalta after a trial in 2015, since it did not provide her any better control of her symptoms. She had significant weight gain on mirtazapine. As of 12/2016, we had increased her Wellbutrin dose to 450 mg daily. She is also being seen for memory issues by a neurologist, and neuropsychometric testing was performed and November 2018 and psychotherapy was recommended. Problem Vitamin D deficiency E55.9 Active 16888364 Harpal mcgregor takes 5000 units of vitamin D daily. Her vitamin D level was 43 in March 2019. Problem Shortness of breath R06.02 Active 089345150 Harpal mcgregor has had extensive testing for shortness of breath in late 2016 including laboratory studies, chest x-ray, CT pulmonary angiography, a stress echocardiogram, and pulmonary function testing with methacholine challenge. She was placed on Breo therapy for reactive airways disease in June 2017, which she took for a month but reinstitution of daily intranasal steroid therapy for her allergic rhinitis has controlled her shortness of breath quite well. Problem Allergic rhinitis, unspecified seasonality, unspecifie d trigger J30.9 Active 05837420 She has persistent s inus discomfort related to allergic rhinitis. She will does intensify her Nasacort to 2 sprays each nostril twice daily as needed. She will continue loratadine and Singulair. Daily nasal spray delivered as a stream instead of a mist, several times a day, will also help I believe. I don't think much of Astelin spray and I don't prescribe that. Because of her persistent symptoms as of June 2020 eye have also given her a course of prednisone. ALLERGIES Allergen (clinical drug ingredient) Drug/Non Drug Allergy do cumented on EMR Reaction Allergy Type Onset Date Status fentanyl Fentanyl([facility] Code:[address]-80) amnesia Drug Allergy Active Penicillin (For Allergies Use Only) Rash Drug Allerg y Active ampicillin Ampicillin([facility] Code:[address]-85) Rash Drug Allergy Active ENCOUNTERS from 1955 to 2020-08-12 Encounter Location Date Provider Diagnosis [facility] [address] [place] [address] Jul Marianela Recore Kidney stone on right side N20.0 ; Renal cyst N28.1 and Pre-op testing Z01.818 IMMUNIZATIONS Vaccine Route Administration Date Status Zoster 50mcg/0.5mL (Shingrix) IM Intramuscular Aug 24, 2018 A dministered Zoster 50mcg/0.5mL (Shingrix) IM Intramuscular Mar 12, 2018 A dministered Influenza (6mo & up) Fluzone Unknown Apr 19, 2013 Adm inistered SOCIAL HISTORY Tobacco Use: Social History Observation Description Date Details (start date - stop date) Former Smoker Sex Assigned At : Social History Observation Description Sex Assigned At Unknown Education: Question Answer Notes Level of Education: Professional Schools/Masters/PhD Audit Question Answer Notes Total Score: 1 Interpretation: Alcohol Education Language: Question Answer Notes Languages spoken: Icelandic Sexual Hx: Question Answer Notes Had sex in the last 12 months (vaginal, oral, or anal)? No Have you ever had an STD? No Drug and Alcohol Question Answer Notes Total Score: 0 Interpretation: No problems reported Alcohol Screening: Question Answer Notes Did you have a drink containing alcohol in the past year? Ye s Points 1 Interpretation Negative How many drinks did you have on a typica l day when you were drinking in the past year? 1 or 2 (0 points) How often did you have a drink containing alcohol in t he past year? Monthly or less (1 point) BMI Care Goal Follow-Up Question Answer Notes Above Normal BMI Follow-Up Dietary management educatio n, guidance, and counseling Tobacco Use: Question Answer Notes Are you a: former smoker How long has it been since you last smoked? > 10 years REASON FOR REFERRAL No Information VITAL SIGNS Weight 204 lbs Jul, Height 68 in Jul, BMI 31.01 kg/m2 Jul, Heart Rate 58 /min Jul, Respiratory Rate 18 /min Jul, Oximetry 99% Jul, Blood pressure systolic 104 mm Hg Jul, Blood pressure diastolic 72 mm Hg Jul, MEDICATIONS Medication SIG (Take, Route, Frequency, Duration) Notes Start Da te End Date Status Calcium 500 mg 1 tablet with meals Orally Once a day Active Singulair 10 MG 1 tablet Orally Once a day for 90 days Oct, Active Aspir-Low 81 MG 1 tablet Orally Once a day May, Active Prevacid 30 mg 1 capsule Orally Once a day for 90 day(s) Active Triamcinolone Acetonide 0.1 % 1 application Externally Twice a day to left leg for 10 days November, Active Wellbutrin XL 150 MG 1 tablet in the morning Orally Once a day Active PredniSONE 20 MG 1 tablet Orally Once a day for 7 days Jun, Active Loratadine Allergy Relief 10 MG 1 tablet on the tongue and allow to dissolve Orally Once a day for 30 day(s) Jul, Active Tramadol HCl 50 MG 1/2-1 tab Orally every 12 ho urs as needed for pain/MMD=2 for 30 days Feb, Active Carvedilol 12.5 MG 1 tablet Orally Twice a day for 30 day(s) Jun, Active Prempro 0.3-1.5 MG 1 tablet Orally Every day for 90 days Active Vitamin D3 5000 unit 1 tablet Orally Once a day Active ProAir HFA 108 (90 Base) mcg/act 2 puffs Inhalation ev yanira 4 hours as needed for shortness of breath for 90 day(s) Mar, Active Wellbutrin XL 300 MG 1 tablet in the morning Oral ly Once a day with 150mg to equal 450mg daily Active Gabapentin 600 MG 1 capsule Orally Once a day at bedtime for 90 day(s ) Active Vitamin B 12 500 MCG 2 tab(s) Orally Once a day Active Nasacort Allergy 24HR 55 MCG/ACT 2 sprays in each nost ril Nasally 1-2 times a day Active Naproxen 500 MG 1 tablet with food Orally every 12 hrs a s needed for arthritis Sep, Active Multiple Vitamin _ 1 tablet Orally Once a day Active PROCEDURES No Information RESULTS No Results REASON FOR VISIT CT Scan results MEDICAL (GENERAL) HISTORY Type Description Date Medical History Anxiety associated with depression Medical History Elevated cholesterol Medical History Vitamin D deficiency Medical History History of bariatric surgery Medical History Hormone replacement therapy Medical History Osteopenia Medical History Shortness of breath Medical History Osteoarthritis Surgical History D&C 1978 Surgical History laparoscopy and D&C for endometriosis 19 Surgical History tubal ligation 1991 Surgical History hysteroscopic ablation of endometrial li walker 1998 Surgical History total right hip replacement 2002 Surgical History gastric bypass, Hernán-en-Y 2005 Surgical History total left hip replacement 2007 Surgical History colonoscopy 06/2012 Surgical History left thumb trigger finger release 2011 Surgical History left wrist and thumb surgery 2012 Goals Section No Information Health Concerns No Information MEDICAL EQUIPMENT No Information MENTAL STATUS No Information FUNCTIONAL STATUS No Information ASSESSMENTS Encounter Date Diagnosis Assessment Notes Treatment Notes Treatm ent Clinical Notes Jul, Kidney stone on right side (ICD-10 - N20.0) Jul, Renal cyst (ICD-10 - N28.1) Jul, Pre-op testing (ICD-10 - Z01.818) PLAN OF TREATMENT Treatment Notes Test Name Order Date CBC - Complete Blood Count 2020-08-12 PT & APTT 2020-08-12 URINE CULTURE 2020-08-12 Urinalysis, Complete with Micro 2020-08-12 Basic Metabolic Profile (BMP) 2020-08-12 Electrocardiogram (EKG) 2020-08-12 Chest X-ray PA and lateral 2020-08-12 Next Appt Details or Reason: Provider Name:Robert Escobedo, 2020-09-17 11:00:00 AM, [address], [place], [phone], Provider Name:Jann Zaidi, 2020-10-01 10 :30:00 AM, [address] [place] [address], [phone], Provider Name:Amado Stockton, 2020-11-12 0 8:20:00 AM, [address] [place] [address], [phone], Insurance Providers Payer Name Payer Address Payer Phone Insured Name Patient Relati onship to Insured Coverage Start Date Coverage End Date [employer] [place] PPO [phone] [facility] [id number] YARELI GRIMES self
--- OUTSIDE RECORDS SUMMARY | 2020-09-07 07:34 | CCD ---
Author Author [facility] Organization [facility] Address Unknown Phone Unavailable Care Team Providers Care Casino Duty Manager Name Role Phone Johann Heath Unavailable PROBLEMS Type Condition ICD9-CM Code [id number] Code Onset Dates Condition S tatus SNOMED Code Notes Problem Osteopenia M85.80 Active [id number] She has ost eoporosis of her spine on bone density as of 2008, 2014, 2019. She is on estrogen replacement therapy, vitamin D and calcium supplementation. This will be followed. 2019 bone density study revealed a T score -2.2 in her spine. She will continue present therapy. Problem Elevated cholesterol E78.00 Active [id number] S he has a history of hypercholesterolemia. Her HDL is favorable and her LDL has not been adverse. Her recent lab work from June 2020 reflects adequate lipid control. Problem History of bariatric surgery Z98.84 Active 572 109716 She had bariatric surgery 2006 and is watched for complications. Vitamin B12 level was normal at 357 most recently in June 2020 and vitamin D level were last done in March 2019. Problem Essential hypertension I10 Active 29996025 She has developed elevated blood pressures as [...] blood flow also. Problem Osteoarthritis M19.90 Active 868169883 She has moderate arthritis and was on on meloxicam but I switched her to naproxen with success in early 2018. She is also on Gabapentin and she is back on Wellbutrin instead of Cymbalta; she takes very occasional doses of tramadol. She has in the past taken a fair amount of uzjo-dva-teirija NSAID therapy which I advised against, and given her decline in renal function and hypertension as of June 2020 I recommended that she limit her NSAID use. ESR and CBC normal in Fall 2014. She increased her gabapentin to 600 mg at bedtime as of April 2016. Problem Kidney stone on right side N20.0 Active 19298 007 Problem Hormone replacement therapy Z79.890 Active 3324 83298 She is on Prempro therapy and wishes to maintain that. I advised a slow taper in the past. She sees a gynecologic provider. Problem Anxiety associated with depression F41.8 Activ e [id number] She is back on Wellbutrin and off [...] recommended. Problem Vitamin D deficiency E55.9 Active 31973919 Harpal mcgregor takes 5000 units of vitamin D daily. Her vitamin D level was 43 in March 2019. Problem Shortness of breath R06.02 Active 843643984 Harpal mcgregor has had extensive testing for [...] unspecified seasonality, unspecifie d trigger J30.9 Active 01865727 She has persistent s inus discomfort related [...] Reaction Allergy Type Onset Date Status fentanyl Fentanyl([facility] Code:[address]-64) amnesia Drug Allergy Active Penicillin (For Allergies Use Only) Rash Drug Allerg y Active ampicillin Ampicillin([facility] Code:[address]-93) Rash Drug Allergy Active ENCOUNTERS from 1955 to 2020-08-13 Encounter Location Date Provider Diagnosis [facility] U[facility] [address] [place] [address] Jul Johann Heath IMMUNIZATIONS Vaccine Route Administration Date Status Zoster [...] Education Language: Question Answer Notes Languages spoken: French Sexual Hx: Question Answer Notes Had sex [...] REASON FOR REFERRAL No Information VITAL SIGNS No information MEDICATIONS Medication SIG (Take, Route, Frequency, Duration) [...] Information RESULTS No Results REASON FOR VISIT surgery MEDICAL (GENERAL) HISTORY Type Description Date Medical History Anxiety associated with depression Medical History Elevated cholesterol Medical History Vitamin D deficiency Medical History History of bariatric surgery Medical History Hormone replacement therapy Medical History Osteopenia Medical History Shortness of breath Medical History Osteoarthritis Surgical History D&C 1978 Surgical History laparoscopy and D&C for endometriosis Surgical History tubal ligation 1991 Surgical History [...] No Information FUNCTIONAL STATUS No Information ASSESSMENTS No Information PLAN OF TREATMENT Next Appt Details Provider Name:Robert Gi Escobedo, 2020-09-17 11:00:00 AM, [address] , [place], [address], Provider Name:Jann Zaidi, 2020-10-01 10 :30:00 AM, [address] [place] [address], [phone], Provider Name:Amado Stockton, 2020-11-12 0 8:20:00 AM, [address] [place] [address], [phone], Insurance Providers Payer Name Payer Address Payer Phone Insured Name Patient Relati onship to Insured Coverage Start Date Coverage End Date BCBS KAEL LYNCH PPO [phone] [facility] Get [place] [address] YARELI GRIMES self
--- OUTSIDE RECORDS SUMMARY | 2020-09-07 07:35 | CCD ---
Author Author [facility] Organization [facility] Address Unknown Phone Unavailable Care Team Providers Care Hand Singer Name Role Phone Marianela Wellington Unavailable PROBLEMS Type Condition ICD9-CM Code [id number] Code Onset Dates Condition S tatus SNOMED Code Notes Problem Osteoarthritis M19.90 Active [id number] She has moderate arthritis and was on on meloxicam but I switched her to naproxen with success in early 2018. She is also on Gabapentin and she is back on Wellbutrin instead of Cymbalta; she takes very occasional doses of tramadol. She has in the past taken a fair amount of stuo-gfn-ubxvazn NSAID therapy which I advised against, and given her decline in renal function and hypertension as of June 2020 I recommended that she limit her NSAID use. ESR and CBC normal in Fall 2014. She increased her gabapentin to 600 mg at bedtime as of April 2016. Problem Osteopenia M85.80 Active 845441008 She has ost eoporosis of her spine on bone density as of 2008, 2014, 2019. She is on estrogen replacement therapy, vitamin D and calcium supplementation. This will be followed. 2019 bone density study revealed a T score -2.2 in her spine. She will continue present therapy. Problem Elevated cholesterol E78.00 Active 022144077 S he has a history of hypercholesterolemia. Her HDL is favorable and her LDL has not been adverse. Her recent lab work from June 2020 reflects adequate lipid control. Problem Allergic rhinitis, unspecified seasonality, unspecifie d trigger J30.9 Active 57425491 She has persistent s inus discomfort related [...] also given her a course of prednisone. Problem Hormone replacement therapy Z79.890 Active 3299 78755 She is on Prempro therapy and wishes to maintain that. I advised a slow taper in the past. She sees a gynecologic provider. Problem Essential hypertension I10 Active 98223007 She has developed elevated blood pressures as [...] evaluate her renal blood flow also. Problem History of bariatric surgery Z98.84 Active 022 807136 She had bariatric surgery 2005 and is watched for complications. Vitamin B12 level was normal at 357 most recently in June 2020 and vitamin D level were last done in March 2019. Problem Anxiety associated with depression F41.8 Activ e 819653511 She is back on Wellbutrin and off [...] recommended. Problem Vitamin D deficiency E55.9 Active 85400102 Harpal mcgregor takes 5000 units of vitamin D daily. Her vitamin D level was 43 in March 2019. Problem Shortness of breath R06.02 Active 722859239 Harpal mcgregor has had extensive testing for [...] controlled her shortness of breath quite well. ALLERGIES Allergen (clinical drug ingredient) Drug/Non Drug Allergy do cumented on EMR Reaction Allergy Type Onset Date Status fentanyl Fentanyl([facility] Code:[address]-32) amnesia Drug Allergy Active Penicillin (For Allergies Use Only) Rash Drug Allerg y Active ampicillin Ampicillin([facility] Code:[address]-19) Rash Drug Allergy Active ENCOUNTERS from 1957 to 2020-07-26 Encounter Location Date Provider Diagnosis [facility] Urology [address] [place] [address] Jul Marianela Recomeagan Hydronephrosis N13.30 IMMUNIZATIONS Vaccine Route Administration Date Status Zoster [...] Education Language: Question Answer Notes Languages spoken: Beninese Sexual Hx: Question Answer Notes Had sex [...] FOR REFERRAL No Information VITAL SIGNS Weight 206 lbs Jul, Height 68 in Jul, BMI 31.32 kg/m2 Jul, Heart Rate 81 /min Jul, Respiratory Rate 18 /min Jul, Temperature 97.3 degrees Fahrenheit Jul, Oximetry 97 Jul, Blood pressure systolic 122 mm Hg Jul, Blood pressure diastolic 78 mm Hg Jul, MEDICATIONS Medication SIG (Take, Route, Frequency, Duration) Notes Start Da te End Date Status Multiple Vitamin _ 1 tablet Orally Once a day Active Prevacid 30 mg 1 capsule Orally Once a day for 90 day(s) Active Vitamin B 12 500 MCG 2 tab(s) Orally Once a day Active Carvedilol 12.5 MG 1 tablet Orally Twice a day for 30 day(s) Jun, Active Singulair 10 MG 1 tablet Orally Once a day for 90 days Oct, Active Gabapentin 600 MG 1 capsule Orally Once a day at bedtime for 90 day(s ) Active Wellbutrin XL 300 MG 1 tablet in the morning Oral ly Once a day with 150mg to equal 450mg daily Active Loratadine Allergy Relief 10 MG 1 tablet on the tongue and allow to dissolve Orally Once a day for 30 day(s) Jul, Active Tramadol HCl 50 MG 1/2-1 tab Orally every 12 ho urs as needed for pain/MMD=2 for 30 days Feb, Active ProAir HFA 108 (90 Base) mcg/act 2 puffs Inhalation ev yanira 4 hours as needed for shortness of breath for 90 day(s) Mar, Active PredniSONE 20 MG 1 tablet Orally Once a day for 7 days Jun, Active Aspir-Low 81 MG 1 tablet Orally Once a day May, Active Naproxen 500 MG 1 tablet with food Orally every 12 hrs a s needed for arthritis Sep, Active Vitamin D3 5000 unit 1 tablet Orally Once a day Active Nasacort Allergy 24HR 55 MCG/ACT 2 sprays in each nost ril Nasally 1-2 times a day Active Calcium 500 mg 1 tablet with meals Orally Once a day Active Wellbutrin XL 150 MG 1 tablet in the morning Orally Once a day Active Triamcinolone Acetonide 0.1 % 1 application Externally Twice a day to left leg for 10 days November, Active Prempro 0.3-1.5 MG 1 tablet Orally Every day for 90 days Active PROCEDURES No Information RESULTS Component Value Reference Range UA URINALYSIS Reviewed date:07/24/2020 13:44:54 Interpretation: Performing Lab:[facility], [facility] [address] [facility] [address] , ,[place] [address] URINE CULTURE Reviewed date:07/25/2020 09:43:11 Interpretation: Performing Lab:[facility], [facility] [address] [facility] [address] , ,[place] [address] REASON FOR VISIT hydronephrosis of left kidney MEDICAL (GENERAL) HISTORY Type Description Date Medical [...] Treatment Notes Treatm ent Clinical Notes Jul, Hydronephrosis (ICD-10 - N13.30) PLAN OF TREATMENT Treatment Notes Test Name Order Date Basic Metabolic Profile (BMP) 2020-07-26 CT Scan : Urogram (Abdomen/Pelvis) 2020-07-26 Next Appt Details Provider Name:Jann Zaidi, 2020-10-01 09 :00:00 AM, [address] [place] [address], [phone], Provider Name:Amado Stockton, 2020-11-12 0 8:20:00 AM, [address] [place] [address], [phone], Insurance Providers Payer Name Payer Address Payer Phone Insured Name Patient Relati onship to Insured Coverage Start Date Coverage End Date BCBS [place] PPO [phone] [facility] [place] [employer] [place] [facility] YARELI GRIMES self
--- OUTSIDE RECORDS SUMMARY | 2020-09-07 07:35 | CCD ---
Author Author [facility] Organization [facility] Address Unknown Phone Unavailable Care Team Providers Care Management And Budget Analyst Name Role Phone Jann Zaidi Unavailable PROBLEMS Type Condition ICD9-CM Code USE91-ZH Code Onset Dates Condition S tatus SNOMED Code Notes Problem Osteoarthritis M19.90 Active [id number] She has moderate arthritis and was on on meloxicam but I switched her to naproxen with success in early 2018. She is also on Gabapentin and she is back on Wellbutrin instead of Cymbalta; she takes very occasional doses of tramadol. She has in the past taken a fair amount of vxwn-pqg-hurqzhn NSAID therapy which I advised against, and given her decline in renal function and hypertension as of June 2020 I recommended that she limit her NSAID use. ESR and CBC normal in Fall 2014. She increased her gabapentin to 600 mg at bedtime as of April 2016. Problem Osteopenia M85.80 Active 029696917 She has ost eoporosis of her spine on bone density as of 2008, 2014, 2019. She is on estrogen replacement therapy, vitamin D and calcium supplementation. This will be followed. 2019 bone density study revealed a T score -2.2 in her spine. She will continue present therapy. Problem Elevated cholesterol E78.00 Active 021716156 S he has a history of hypercholesterolemia. Her HDL is favorable and her LDL has not been adverse. Her recent lab work from June 2020 reflects adequate lipid control. Problem Allergic rhinitis, unspecified seasonality, unspecifie d trigger J30.9 Active 46424356 She has persistent s inus discomfort related [...] prednisone. Problem Hormone replacement therapy Z79.890 Active 1040 65656 She is on Prempro therapy and wishes to maintain that. I advised a slow taper in the past. She sees a gynecologic provider. Problem Essential hypertension I10 Active 29342170 She has developed elevated blood pressures as [...] Problem History of bariatric surgery Z98.84 Active 147 623626 She had bariatric surgery 2005 and is watched for complications. Vitamin B12 level was normal at 357 most recently in June 2020 and vitamin D level were last done in March 2019. Problem Anxiety associated with depression F41.8 Activ e 690439980 She is back on Wellbutrin and off [...] recommended. Problem Vitamin D deficiency E55.9 Active 12187592 Harpal mcgregor takes 5000 units of vitamin D daily. Her vitamin D level was 43 in March 2019. Problem Shortness of breath R06.02 Active 570416908 Harpal mcgregor has had extensive testing for [...] Reaction Allergy Type Onset Date Status fentanyl Fentanyl([facility] Code:[address]-01) amnesia Drug Allergy Active Penicillin (For Allergies Use Only) Rash Drug Allerg y Active ampicillin Ampicillin([facility] Code:[address]-58) Rash Drug Allergy Active ENCOUNTERS from 1957 to 2020-07-11 Encounter Location Date Provider Diagnosis [address] [address] Jun, Jann Zaidi Hydronephrosis of left kidney N13.30 IMMUNIZATIONS Vaccine Route Administration Date Status [...] Education Language: Question Answer Notes Languages spoken: Ghanaian Sexual Hx: Question Answer Notes Had sex in the last 12 months (vaginal, oral, or anal)? No Have you ever had an STD? No Drug and Alcohol Question Answer Notes Total Score: 0 Interpretation: No problems reported BMI Care Goal Follow-Up Question Answer Notes Above Normal BMI Follow-Up Dietary management educatio n, guidance, and counseling Tobacco Use: Question Answer Notes Are you a: former smoker How long has it been since you last smoked? > 10 years REASON FOR REFERRAL No Information VITAL SIGNS No information MEDICATIONS Medication SIG (Take, Route, Frequency, Duration) Notes Start Da te End Date Status Wellbutrin XL 150 MG 1 tablet in the morning Orally Once a day Active Carvedilol 12.5 MG 1 tablet Orally Twice a day for 30 day(s) Jun, Active Gabapentin 600 MG 1 capsule Orally Once a day at bedtime for 90 day(s ) Active Prevacid 30 mg 1 capsule Orally Once a day for 90 day(s) Active Naproxen 500 MG 1 tablet with food Orally every 12 hrs a s needed for arthritis Sep, Active Tramadol HCl 50 MG 1/2-1 tab Orally every 12 ho urs as needed for pain/MMD=2 for 30 days Feb, Active Vitamin D3 5000 unit 1 tablet Orally Once a day Active Loratadine Allergy Relief 10 MG 1 tablet on the tongue and allow to dissolve Orally Once a day for 30 day(s) Jul, Active Triamcinolone Acetonide 0.1 % 1 application Externally Twice a day to left leg for 10 days November, Active Nasacort Allergy 24HR 55 MCG/ACT 2 sprays in each nost ril Nasally 1-2 times a day Active Prempro 0.3-1.5 MG 1 tablet Orally Every day for 90 days Active Multiple Vitamin _ 1 tablet Orally Once a day Active PredniSONE 20 MG 1 tablet Orally Once a day for 7 days Jun, Active Wellbutrin XL 300 MG 1 tablet in the morning Oral ly Once a day with 150mg to equal 450mg daily Active Vitamin B 12 500 MCG 2 tab(s) Orally Once a day Active Calcium 500 mg 1 tablet with meals Orally Once a day Active Singulair 10 MG 1 tablet Orally Once a day for 90 days Oct, Active ProAir HFA 108 (90 Base) mcg/act 2 puffs Inhalation ev yanira 4 hours as needed for shortness of breath for 90 day(s) Mar, Active Aspir-Low 81 MG 1 tablet Orally Once a day May, Active PROCEDURES No Information RESULTS No Results REASON FOR VISIT urology referral for hydronephrosis on U/S MEDICAL (GENERAL) HISTORY Type Description Date Medical History Anxiety associated with depression Medical History Elevated cholesterol Medical History Vitamin D deficiency Medical History History of bariatric surgery Medical History Hormone replacement therapy Medical History Osteopenia Medical History Shortness of breath Medical History Osteoarthritis Surgical History D&C 1978 Surgical History laparoscopy and D&C for endometriosis 19 83 Surgical History tubal ligation 1991 Surgical History [...] Notes Treatment Notes Treatm ent Clinical Notes Jun, Hydronephrosis of left kidney (ICD-10 - N13.30) PLAN OF TREATMENT Medication Medication Name Sig Start Date Stop Date PredniSONE 20 MG 1 tablet Orally Once a day for 7 days Jun, Tramadol HCl 50 MG 1/2-1 tab Orally every 12 ho urs as needed for pain/MMD=2 for 30 days Feb, Carvedilol 12.5 MG 1 tablet Orally Twice a day for 30 day(s) Jun, ProAir HFA 108 (90 Base) mcg/act 2 puffs Inhalation ev yanira 4 hours as needed for shortness of breath for 90 day(s) Mar, Next Appt Details Provider Name:Jann Zaidi, 2020-10-01 09 :00:00 AM, [address] [place], [address], Insurance Providers Payer Name Payer Address Payer Phone Insured Name Patient Relati onship to Insured Coverage Start Date Coverage End Date BCBS UTIAR[employer] LYNCH PPO [phone] [facility] [employer] [place] [address] YARELI GRIMES self
--- OUTSIDE RECORDS SUMMARY | 2020-09-07 07:35 | CCD ---
Author Author [facility] Organization [facility] Address Unknown Phone Unavailable Care Team Providers Care A Auxiliary Name Role Phone Sarah LINDQUIST DO Unavailable [phone] Sarah LINDQUIST DO Unavailable [phone] Sarah LINDQUIST DO Unavailable [phone] Sarah LINDQUIST DO Unavailable [phone] Sarah LINDQUISTEW DO Unavailable [phone] Sarah LINDQUISTEW DO Unavailable [phone] Sarah LINDQUIST DO Unavailable [phone] Sarah LINDQUISTEW DO Unavailable [phone] Sarah LINDQUISTEW DO Unavailable [phone] Sarah LINDQUIST DO Unavailable [phone] Sarah LINDQUIST DO Unavailable [phone] DARION, A. RUBEN DO Unavailable [phone] Sarah LINDQUIST RUBEN DO Unavailable [phone] Sarah LINDQUIST RUBEN DO Unavailable [phone] Sarah LINDQUIST RUBEN DO Unavailable [phone] Sarah LINDQUIST RUBEN DO Unavailable [phone] Sarah LINDQUIST RUBEN DO Unavailable [phone] Ramos LINDQUIST. RUBEN DO Unavailable [phone] Ramos LINDQUIST. RUBEN DO Unavailable [phone] Sarah LINDQUIST RUBEN DO Unavailable [phone] Sarah LINDQUIST RUBEN DO Unavailable [phone] LETTIERE, A JANNETTE PA Unavailable Unavailable LETTIERE, A JANNETTE PA Unavailable Unavailable LETTIERE, A JANNETTE PA Unavailable Unavailable LETTIERE, A JANNETTE PA Unavailable Unavailable LETTIERE, A JANNETTE PA Unavailable Unavailable LETTIERE, A JANNETTE PA Unavailable Unavailable LETTIERE, A JANNETTE PA Unavailable Unavailable LETTIERE, A JANNETTE PA Unavailable Unavailable LETTIERE, A JANNETTE PA Unavailable Unavailable LETTIERE, A JANNETTE PA Unavailable Unavailable LETTIERE, A JANNETTE PA Unavailable Unavailable LETTIERE, A JANNETTE PA Unavailable Unavailable LETTIERE, A JANNETTE PA Unavailable Unavailable LETTIERE, A JANNETTE PA Unavailable Unavailable LETTIERE, A JANNETTE PA Unavailable Unavailable LETTIERE, A JANNETTE PA Unavailable Unavailable LETTIERE, A JANNETTE PA Unavailable Unavailable LETTIERE, A JANNETTE PA Unavailable Unavailable LETTIERE, A JANNETTE PA Unavailable Unavailable LETTIERE, A JANNETTE PA Unavailable Unavailable LETTIERE, A JANNETTE PA Unavailable Unavailable LETTIERE, A JANNETTE PA Unavailable Unavailable LETTIERE, A JANNETTE PA Unavailable Unavailable LETTIERE, A JANNETTE PA Unavailable Unavailable LETTIERE, A JANNETTE PA Unavailable Unavailable LETTIERE, A JANNETTE PA Unavailable Unavailable LETTIERE, A JANNETTE PA Unavailable Unavailable LETTIERE, A JANNETTE PA Unavailable Unavailable LETTIERE, A JANNETTE PA Unavailable Unavailable Re-disclosure Warning The records that you are about to access may contain information from federally-assisted alcohol or drug abuse programs. If such information is present, then the following federally mandated warning applies: This information has been disclosed to you from records protected by federal confidentiality rules (42 CFR part 2). The federal rules prohibit you from making any further disclosure of this information unless further disclosure is expressly permitted by the written consent of the person to whom it pertains or as otherwise permitted by 42 CFR part 2. A general authorization for the release of medical or other information is NOT sufficient for this purpose. The Federal rules restrict any use of the information to criminally investigate or prosecute any alcohol or drug abuse patient.The records that you are about to access may contain highly sensitive health information, the redisclosure of which is protected by Article 27-F of the [facility] Public Health law. If you continue you may have access to information: Regarding HIV / AIDS; Provided by facilities licensed or operated by the [facility] Office of Mental Health; or Provided by the [facility] Office for People With Developmental Disabilities. If such information is present, then the following [facility] mandated warning applies: This information has been disclosed to you from confidential records which are protected by state law. State law prohibits you from making any further disclosure of this information without the specific written consent of the person to whom it pertains, or as otherwise permitted by law. Any unauthorized further disclosure in violation of state law may result in a fine or chcf sentence or both. A general authorization for the release of medical or other information is NOT sufficient authorization for further disc losure. Allergies and Adverse Reactions Type Description Substance Reaction Status Data Source(s ) ampicillin Ampicillin Ampicillin Rash Active eCW1 ([facility]) Drug allergy Fentanyl Fentanyl amnesia Active eCW1 ([facility]) Family History Family Member Name Family Member Gender Family Member Status Date o f Status Description Data Source(s) Unknown Male Problem MEDENT ([facility]) Unknown Unknown Problem MEDENT ([facility]) Encounters Encounter Providers Location Date Indications Data Source(s ) Unknown [address] [facility] [place] [address] 08/09/2020 12:00:00 AM EST eCW1 ([facility]) [place] [address] [facility] [place] [address] 08/07/2020 12:00:00 AM EST eCW1 ([facility]) Unknown [address] [facility] [place] [address] 08/06/2020 12:00:00 AM EST eCW1 ([facility] [place]patient [address] [facility] [place] [address] 07/24/2020 12:00:00 AM EST eCW1 ([facility] Unknown [address] [facility] [place] [address] 07/11/2020 12:00:00 AM EST eCW1 ([facility] Unknown [address] [facility] [place] [address] 07/11/2020 12:00:00 AM EST eCW1 ([facility]) Outpatient [address] [facility] [place] [address] 07/03/2020 12:00:00 AM EST eCW1 ([facility]) Outpatient Attender: JANNETTE arredondo 05/08/2020 12:15:00 PM EDT MEDENT ([facility] [address] [facility] [place] [address] 12/14/2019 12:00:00 AM EDT eCW1 ([facility]) Outpatient [address] [facility] [place] [address] 12/13/2019 12:00:00 AM EDT eCW1 ([facility]) [facility] [address] [facility] [place] [address] 11/16/2019 12:00:00 AM EDT eCW1 ([facility] [address] [facility] [place] [address] 11/04/2019 12:00:00 AM EDT eCW1 ([facility]) [facility] [address] [facility] [place] [address] 11/03/2019 12:00:00 AM EDT eCW1 ([facility]) [facility] [address] [facility] [place] [address] 10/07/2019 12:00:00 AM EDT eCW1 ([facility]) [place] [id number] [facility] [place] [address] 10/06/2019 12:00:00 AM EDT eCW1 ([facility]ly [facility]) [address] [address] 09/27/2019 12:00:00 AM EDT eCW1 ([facility]) [address] [address] 08/08/2019 12:00:00 AM EST eCW1 ([facility]) [address] [address] 08/08/2019 12:00:00 AM EST eCW1 ([facility]) Outpatient<td ID="encounterTypeDescripti [email or web address]">1 Year Follow-Up</td><td>Ruben Lindquist DO</td><td>Lukas Gastelum MD [facility]</td><td>08/05/2019</td><td><content ID="encounterDiagnosisID0-0">Posterior Capsule Opacification Eccentric Capsule Right Eye</content>, <content ID="encounterDiagnosisID0-1">Corneal Dystrophy Endothelial Fuchs'</content>, <content ID="encounterDiagnosisID0-2">Dry Eye Syndrome Both Eyes</content>, <content ID="encounterDiagnosisID0-3">Macular Puckering</content>, <content ID="encounterDiagnosisID0-4">Pseudophakia</content></td> Attender: RUBEN Buckner MD [facility] 08/05/2019 08:37:00 AM EST - 08/05/2019 09:20:00 AM EST Posterior Capsule Opacification Eccentri c Capsule Right EyePseudophakiaMacular PuckeringDry Eye Syndrome Both EyesCorneal Dystrophy Endothelial Fuchs' HOLLY (Lukas Scherer MD [facility]) Posterior Capsule Opacification Eccentri c Capsule Right Eye Pseudophakia 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' Medications Medication Brand Name Start Date Product Form Dose Route Admi nistrative Instructions Pharmacy Instructions Status Indications Reaction Description Data Source(s) 90 mcg/actuation 07/12/2020 12:00:00 AM EST HFA aerosol inha ler 25 INHALE TWO PUFFS BY MOUTH EVERY 4 HOURS NEEDED FOR FOR SHORTNESS OF BREATH INHALE TWO PUFFS BY MOUTH EVERY 4 HOURS NEEDED FOR FOR SHORTNESS OF BREATH SOLD: 07/12/2020 [facility] Prednisone 20 MG Oral Tablet PredniSONE 20 MG PredniSONE 20 MG 07/03/2020 12:00:00 AM EST 1.0 {tablet} active Pr edniSONE 20 MG eCW1 ([facility]) carvedilol 12.5 MG Oral Tablet Carvedilol 12.5 MG Carvedilol 12.5 MG 07/03/2020 12:00:00 AM EST 1.0 {tablet} active Ca rvedilol 12.5 MG eCW1 ([facility]) carvedilol 12.5 MG Oral Tablet Carvedilol 12.5 MG Carvedilol 12.5 MG 07/03/2020 12:00:00 AM EST 1.0 {tablet} active Ca rvedilol 12.5 MG eCW1 ([facility]) carvedilol 12.5 MG Oral Tablet Carvedilol 12.5 MG Carvedilol 12.5 MG 07/03/2020 12:00:00 AM EST 1.0 {tablet} active Ca rvedilol 12.5 MG eCW1 ([facility]) 20 mg 07/03/2020 12:00:00 AM EST tablet 7 TAKE ONE TABLET BY MOUTH EVERY DAY FOR 7 DAYS TAKE ONE TABLET BY MOUTH EVERY DAY FOR 7 DAYS SOLD: 07/03/2020 [facility] Prednisone 20 MG Oral Tablet PredniSONE 20 MG PredniSONE 20 MG 07/03/2020 12:00:00 AM EST 1.0 {tablet} active Pr edniSONE 20 MG eCW1 ([facility]) Prednisone 20 MG Oral Tablet PredniSONE 20 MG PredniSONE 20 MG 07/03/2020 12:00:00 AM EST 1.0 {tablet} active Pr edniSONE 20 MG eCW1 ([facility]) 50 mg 07/03/2020 12:00:00 AM EST tablet 60 TAKE 1/2-1 TABLET BY MOUTH EVERY 12 HOURS NEEDED FOR PAIN MAX DAILY DOSE = 2 TABLETS TAKE 1/2-1 TABLET BY MOUTH EVERY 12 HOURS NEEDED FOR PAIN MAX DAILY DOSE = 2 TABLETS SOLD: 07/03/2020 [facility] carvedilol 12.5 MG Oral Tablet Carvedilol 12.5 MG Carvedilol 12.5 MG 07/03/2020 12:00:00 AM EST 1.0 {tablet} active Ca rvedilol 12.5 MG eCW1 ([facility]) carvedilol 12.5 MG Oral Tablet Carvedilol 12.5 MG Carvedilol 12.5 MG 07/03/2020 12:00:00 AM EST 1.0 {tablet} active Ca rvedilol 12.5 MG eCW1 ([facility]) Prednisone 20 MG Oral Tablet PredniSONE 20 MG PredniSONE 20 MG 07/03/2020 12:00:00 AM EST 1.0 {tablet} active Pr edniSONE 20 MG eCW1 ([facility]) carvedilol 12.5 MG Oral Tablet Carvedilol 12.5 MG Carvedilol 12.5 MG 07/03/2020 12:00:00 AM EST 1.0 {tablet} active Ca rvedilol 12.5 MG eCW1 ([facility]) carvedilol 12.5 MG Oral Tablet Carvedilol 12.5 MG Carvedilol 12.5 MG 07/03/2020 12:00:00 AM EST 1.0 {tablet} active Ca rvedilol 12.5 MG eCW1 ([facility]) carvedilol 12.5 MG Oral Tablet CARVEDILOL 07/03/2020 12:00:00 AM EST tablet 60 TAKE ONE TABLET BY MOUTH TWICE A DAY TAKE ONE TABLET BY MOUT H TWICE A DAY SOLD: 08/03/2020 [facility] carvedilol 12.5 MG Oral Tablet CARVEDILOL 07/03/2020 12:00:00 AM EST tablet 60 TAKE ONE TABLET BY MOUTH TWICE A DAY TAKE ONE TABLET BY MOUT H TWICE A DAY SOLD: 08/30/2020 [facility] Prednisone 20 MG Oral Tablet PredniSONE 20 MG PredniSONE 20 MG 07/03/2020 12:00:00 AM EST 1.0 {tablet} active Pr edniSONE 20 MG eCW1 ([facility]) Prednisone 20 MG Oral Tablet PredniSONE 20 MG PredniSONE 20 MG 07/03/2020 12:00:00 AM EST 1.0 {tablet} active Pr edniSONE 20 MG eCW1 ([facility]) carvedilol 12.5 MG Oral Tablet CARVEDILOL 07/03/2020 12:00:00 AM EST tablet 60 TAKE ONE TABLET BY MOUTH TWICE A DAY TAKE ONE TABLET BY MOUT H TWICE A DAY SOLD: 07/03/2020 [facility] Prednisone 20 MG Oral Tablet PredniSONE 20 MG PredniSONE 20 MG 07/03/2020 12:00:00 AM EST 1.0 {tablet} active Pr edniSONE 20 MG eCW1 ([facility]) montelukast 10 MG Oral Tablet MONTELUKAST SODIUM 12/31/2019 12:0 0:00 AM EDT tablet 90 TAKE 1 TABLET BY MOUTH ONCE A DAY TAKE 1 TABLET BY MOUTH ONCE A DAY SOLD: 07/02/2020 [facility] montelukast 10 MG Oral Tablet MONTELUKAST SODIUM 12/31/2019 12:0 0:00 AM EDT tablet 90 TAKE 1 TABLET BY MOUTH ONCE A DAY TAKE 1 TABLET BY MOUTH ONCE A DAY SOLD: 04/04/2020 [facility] montelukast 10 MG Oral Tablet MONTELUKAST SODIUM 12/31/2019 12:0 0:00 AM EDT tablet 90 TAKE 1 TABLET BY MOUTH ONCE A DAY TAKE 1 TABLET BY MOUTH ONCE A DAY SOLD: 01/06/2020 [facility] Triamcinolone Acetonide 0.001 MG/MG Topi broderick Ointment Triamcinolone Acetonide 0.1 % Triamcinolone Acetonide 0.1 % 12/14/2019 12:00:00 AM EDT 1.0 {application} active Triamcinolone Aceton felicity 0.1 % eCW1 ([facility]) Fluconazole 200 MG Oral Tablet [Diflucan] Diflucan 200 MG Di flucan 200 MG 12/14/2019 12:00:00 AM EDT 1.0 {tablet} active Diflucan 200 MG eCW1 ([facility]) Cephalexin 500 MG Oral Capsule CEPHALEXIN 12/14/2019 12:00:00 AM EDT capsule 15 TAKE ONE CAPSULE BY MOUTH EVERY 8 HOURS FOR 5 DAYS ROZ E ONE CAPSULE BY MOUTH EVERY 8 HOURS FOR 5 DAYS SOLD: 12/15/2019 [facility] Triamcinolone Acetonide 0.001 MG/MG Topi broderick Ointment Triamcinolone Acetonide 0.1 % Triamcinolone Acetonide 0.1 % 12/14/2019 12:00:00 AM EDT 1.0 {application} active Triamcinolone Aceton felicity 0.1 % eCW1 ([facility]) Cephalexin 500 MG Oral Capsule [Keflex] Keflex 500 MG Keflex 500 MG 12/14/2019 12:00:00 AM EDT 1.0 {capsule} active K eflex 500 MG eCW1 ([facility]) Triamcinolone Acetonide 0.001 MG/MG Topi broderick Ointment Triamcinolone Acetonide 0.1 % Triamcinolone Acetonide 0.1 % 12/14/2019 12:00:00 AM EDT 1.0 {application} active Triamcinolone Aceton felicity 0.1 % eCW1 ([facility]) 200 mg 12/14/2019 12:00:00 AM EDT tablet 2 TAKE 1 TABLET BY MOUTH ONCE 12/15 AND 12/18 TAKE 1 TABLET BY MOUTH ONCE 12/15 AND 12/18 SOLD: 12/15/2019 [facility] Triamcinolone Acetonide 0.001 MG/MG Topi broderick Ointment Triamcinolone Acetonide 0.1 % Triamcinolone Acetonide 0.1 % 12/14/2019 12:00:00 AM EDT 1.0 {application} active Triamcinolone Aceton felicity 0.1 % eCW1 ([facility]) Triamcinolone Acetonide 0.001 MG/MG Topi broderick Ointment Triamcinolone Acetonide 0.1 % Triamcinolone Acetonide 0.1 % 12/14/2019 12:00:00 AM EDT 1.0 {application} active Triamcinolone Aceton felicity 0.1 % eCW1 ([facility]) Triamcinolone Acetonide 0.001 MG/MG Topi broderick Ointment Triamcinolone Acetonide 0.1 % Triamcinolone Acetonide 0.1 % 12/14/2019 12:00:00 AM EDT 1.0 {application} active Triamcinolone Aceton felicity 0.1 % eCW1 ([facility]) 0.1 % 12/14/2019 12:00:00 AM EDT ointment 15 APPLY 1 APPLICATION TO LEFT LEG TWICE A DAY FOR 10 DAYS APPLY 1 APPLICATION TO LEFT LEG TWICE A DAY FOR 10 DAYS SOLD: 12/15/2019 [facility] Triamcinolone Acetonide 0.001 MG/MG Topi broderick Ointment Triamcinolone Acetonide 0.1 % Triamcinolone Acetonide 0.1 % 12/14/2019 12:00:00 AM EDT 1.0 {application} active Triamcinolone Aceton felicity 0.1 % eCW1 ([facility]) Triamcinolone Acetonide 0.001 MG/MG Topi broderick Ointment Triamcinolone Acetonide 0.1 % Triamcinolone Acetonide 0.1 % 12/14/2019 12:00:00 AM EDT 1.0 {application} active Triamcinolone Aceton felicity 0.1 % eCW1 ([facility]) 300 mg 11/17/2019 12:00:00 AM EDT tablet extended release 24 hr 90 TAKE 1 TABLET BY MOUTH ONCE A DAY IN THE MORNING TAKE 1 TABLET BY MOUTH ONCE A DAY IN THE MORNING SOLD: 11/21/2019 [facility] 24 HR Bupropion Hydrochloride 300 MG Extended Release Oral T ablet BUPROPION HCL 11/17/2019 12:00:00 AM EDT tablet extended release 24 hr 90 TAKE 1 TABLET BY MOUTH ONCE A DAY IN THE MORNING TAKE 1 TABLET BY MOUTH ONCE A DAY IN THE MORNING SOLD: 08/30/2020 [facility] 300 mg 11/17/2019 12:00:00 AM EDT tablet extended release 24 hr 90 TAKE 1 TABLET BY MOUTH ONCE A DAY IN THE MORNING TAKE 1 TABLET BY MOUTH ONCE A DAY IN THE MORNING SOLD: 02/20/2020 [facility] 24 HR Bupropion Hydrochloride 300 MG Extended Release Oral T ablet BUPROPION HCL 11/17/2019 12:00:00 AM EDT tablet extended release 24 hr 90 TAKE 1 TABLET BY MOUTH ONCE A DAY IN THE MORNING TAKE 1 TABLET BY MOUTH ONCE A DAY IN THE MORNING SOLD: 05/26/2020 [facility] montelukast 10 MG Oral Tablet MONTELUKAST SODIUM 11/04/2019 12:0 0:00 AM EDT tablet 30 TAKE ONE TABLET BY MOUTH EVERY D AY TAKE ONE TABLET BY MOUTH EVERY DAY SOLD: 11/04/2019 [facility] 20 mg 11/04/2019 12:00:00 AM EDT tablet 7 TAKE ONE TABLET BY MOUTH EVERY DAY FOR 7 DAYS TAKE ONE TABLET BY MOUTH EVERY DAY FOR 7 DAYS SOLD: 11/04/2019 [facility] montelukast 10 MG Oral Tablet [Singulair] Singulair 10 MG Si ngulair 10 MG 11/04/2019 12:00:00 AM EDT 1.0 {tablet} active Singulair 10 MG eCW1 ([facility]) montelukast 10 MG Oral Tablet [Singulair] Singulair 10 MG Si ngulair 10 MG 11/04/2019 12:00:00 AM EDT 1.0 {tablet} active Singulair 10 MG eCW1 ([facility]) montelukast 10 MG Oral Tablet [Singulair] Singulair 10 MG Si ngulair 10 MG 11/04/2019 12:00:00 AM EDT 1.0 {tablet} active Singulair 10 MG eCW1 ([facility]) montelukast 10 MG Oral Tablet [Singulair] Singulair 10 MG Si ngulair 10 MG 11/04/2019 12:00:00 AM EDT 1.0 {tablet} active Singulair 10 MG eCW1 ([facility]) montelukast 10 MG Oral Tablet [Singulair] Singulair 10 MG Si ngulair 10 MG 11/04/2019 12:00:00 AM EDT 1.0 {tablet} active Singulair 10 MG eCW1 ([facility]) montelukast 10 MG Oral Tablet [Singulair] Singulair 10 MG Si ngulair 10 MG 11/04/2019 12:00:00 AM EDT 1.0 {tablet} active Singulair 10 MG eCW1 ([facility]) montelukast 10 MG Oral Tablet [Singulair] Singulair 10 MG Si ngulair 10 MG 11/04/2019 12:00:00 AM EDT 1.0 {tablet} active Singulair 10 MG eCW1 ([facility]) montelukast 10 MG Oral Tablet [Singulair] Singulair 10 MG Si ngulair 10 MG 11/04/2019 12:00:00 AM EDT active 1 tablet eCW1 ([facility]) montelukast 10 MG Oral Tablet MONTELUKAST SODIUM 11/04/2019 12:0 0:00 AM EDT tablet 30 TAKE ONE TABLET BY MOUTH EVERY D AY TAKE ONE TABLET BY MOUTH EVERY DAY SOLD: 12/05/2019 [facility] Prednisone 20 MG Oral Tablet PredniSONE 20 MG PredniSONE 20 MG 11/04/2019 12:00:00 AM EDT active 1 tablet eCW1 ([facility]) montelukast 10 MG Oral Tablet [Singulair] Singulair 10 MG Si ngulair 10 MG 11/04/2019 12:00:00 AM EDT 1.0 {tablet} active Singulair 10 MG eCW1 ([facility]) tramadol hydrochloride 50 MG Oral Tablet TRAMADOL HCL 10/08/2019 12:00:00 AM EDT tablet 60 TAKE 1/2-1TABLET BY MOUTH EVERY 12HRS NEEDED FOR PAIN MAX=2TABS/DAY TAKE 1/2-1TABLET BY MOUTH EVERY 12HRS NEEDED FOR PAIN MAX=2TABS/DAY SOLD: 10/08/2019 [facility] 24 HR Bupropion Hydrochloride 150 MG Extended Release Oral T ablet BUPROPION HCL 10/08/2019 12:00:00 AM EDT tablet extended release 24 hr 90 TAKE 1 TABLET BY MOUTH ONCE A DAY IN THE MORNING TAKE 1 TABLET BY MOUTH ONCE A DAY IN THE MORNING SOLD: 06/08/2020 [facility] 30 mg 10/08/2019 12:00:00 AM EDT capsule,delayed release (DR/EC) 90 TAKE 1 CAPSULE BY MOUTH ONCE A DAY TAKE 1 CAPSULE BY MOUTH ONCE A DAY SOLD: 04/04/2020 [facility] 30 mg 10/08/2019 12:00:00 AM EDT capsule,delayed release (DR/EC) 90 TAKE 1 CAPSULE BY MOUTH ONCE A DAY TAKE 1 CAPSULE BY MOUTH ONCE A DAY SOLD: 01/06/2020 [facility] 30 mg 10/08/2019 12:00:00 AM EDT capsule,delayed release (DR/EC) 90 TAKE 1 CAPSULE BY MOUTH ONCE A DAY TAKE 1 CAPSULE BY MOUTH ONCE A DAY SOLD: 10/08/2019 [facility] 0.3-1.5 mg 10/08/2019 12:00:00 AM EDT tablet 84 TAKE 1 TABLET BY MOUTH EVERY DAY TAKE 1 TABLET BY MOUTH EVERY DAY SOLD: 12/31/2019 [facility] 24 HR Bupropion Hydrochloride 150 MG Extended Release Oral T ablet BUPROPION HCL 10/08/2019 12:00:00 AM EDT tablet extended release 24 hr 90 TAKE 1 TABLET BY MOUTH ONCE A DAY IN THE MORNING TAKE 1 TABLET BY MOUTH ONCE A DAY IN THE MORNING SOLD: 10/08/2019 [facility] 600 mg 10/08/2019 12:00:00 AM EDT tablet 90 TAKE 1 CAPSULE BY MOUTH ONCE A DAY AT BEDTIME TAKE 1 CAPSULE BY MOUTH ONCE A DAY AT BEDTIME SOLD: 04/04/2020 [facility] 0.3-1.5 mg 10/08/2019 12:00:00 AM EDT tablet 84 TAKE 1 TABLET BY MOUTH EVERY DAY TAKE 1 TABLET BY MOUTH EVERY DAY SOLD: 06/24/2020 [facility] 600 mg 10/08/2019 12:00:00 AM EDT tablet 90 TAKE 1 CAPSULE BY MOUTH ONCE A DAY AT BEDTIME TAKE 1 CAPSULE BY MOUTH ONCE A DAY AT BEDTIME SOLD: 01/06/2020 [facility] 500 mg 10/08/2019 12:00:00 AM EDT tablet 180 TAKE 1 TABLET BY MOUTH EVERY 12 HOURS WITH FOOD NEEDED FOR ARTHRITIS TAKE 1 TABLET BY MOUTH EVERY 12 HOURS WITH FOOD NEEDED FOR ARTHRITIS SOLD: 04/01/2020 [facility] 24 HR Bupropion Hydrochloride 150 MG Extended Release Oral T ablet BUPROPION HCL 10/08/2019 12:00:00 AM EDT tablet extended release 24 hr 90 TAKE 1 TABLET BY MOUTH ONCE A DAY IN THE MORNING TAKE 1 TABLET BY MOUTH ONCE A DAY IN THE MORNING SOLD: 08/30/2020 [facility] 30 mg 10/08/2019 12:00:00 AM EDT capsule,delayed release (DR/EC) 90 TAKE 1 CAPSULE BY MOUTH ONCE A DAY TAKE 1 CAPSULE BY MOUTH ONCE A DAY SOLD: 07/02/2020 [facility] 600 mg 10/08/2019 12:00:00 AM EDT tablet 90 TAKE 1 CAPSULE BY MOUTH ONCE A DAY AT BEDTIME TAKE 1 CAPSULE BY MOUTH ONCE A DAY AT BEDTIME SOLD: 10/08/2019 [facility] 0.3-1.5 mg 10/08/2019 12:00:00 AM EDT tablet 84 TAKE 1 TABLET BY MOUTH EVERY DAY TAKE 1 TABLET BY MOUTH EVERY DAY SOLD: 10/08/2019 [facility] 0.3-1.5 mg 10/08/2019 12:00:00 AM EDT tablet 84 TAKE 1 TABLET BY MOUTH EVERY DAY TAKE 1 TABLET BY MOUTH EVERY DAY SOLD: 03/24/2020 [facility] 500 mg 10/08/2019 12:00:00 AM EDT tablet 180 TAKE 1 TABLET BY MOUTH EVERY 12 HOURS WITH FOOD NEEDED FOR ARTHRITIS TAKE 1 TABLET BY MOUTH EVERY 12 HOURS WITH FOOD NEEDED FOR ARTHRITIS SOLD: 12/31/2019 [facility] 500 mg 10/08/2019 12:00:00 AM EDT tablet 180 TAKE 1 TABLET BY MOUTH EVERY 12 HOURS WITH FOOD NEEDED FOR ARTHRITIS TAKE 1 TABLET BY MOUTH EVERY 12 HOURS WITH FOOD NEEDED FOR ARTHRITIS SOLD: 06/30/2020 [facility] 500 mg 10/08/2019 12:00:00 AM EDT tablet 180 TAKE 1 TABLET BY MOUTH EVERY 12 HOURS WITH FOOD NEEDED FOR ARTHRITIS TAKE 1 TABLET BY MOUTH EVERY 12 HOURS WITH FOOD NEEDED FOR ARTHRITIS SOLD: 10/08/2019 [facility] 600 mg 10/08/2019 12:00:00 AM EDT tablet 90 TAKE 1 CAPSULE BY MOUTH ONCE A DAY AT BEDTIME TAKE 1 CAPSULE BY MOUTH ONCE A DAY AT BEDTIME SOLD: 07/02/2020 [facility] Loratadine Allergy Relief 10 MG UNK 08/08/2019 12:00:00 AM EST active 1 tablet on the tongue and allow to diss olve eCW1 ([facility]) Loratadine Allergy Relief 10 MG UNK 08/08/2019 12:00:00 AM EST 1.0 {tablet_on_the_tongue_and_allow_to_dissolve} activ e Loratadine Allergy Relief 10 MG eCW1 ([facility]) Loratadine Allergy Relief 10 MG UNK 08/08/2019 12:00:00 AM EST 1.0 {tablet_on_the_tongue_and_allow_to_dissolve} activ e Loratadine Allergy Relief 10 MG eCW1 ([facility]) Loratadine Allergy Relief 10 MG UNK 08/08/2019 12:00:00 AM EST 1.0 {tablet_on_the_tongue_and_allow_to_dissolve} activ e Loratadine Allergy Relief 10 MG eCW1 ([facility]) 100 mg 08/08/2019 12:00:00 AM EST capsule 20 TAKE ONE CAPSULE BY MOUTH TWICE A DAY FOR 10 DAYS TAKE ONE CAPSULE BY MOUTH TWICE A DAY FOR 10 DAYS SOLD : 08/08/2019 [facility] Loratadine Allergy Relief 10 MG UNK 08/08/2019 12:00:00 AM EST 1.0 {tablet_on_the_tongue_and_allow_to_dissolve} activ e Loratadine Allergy Relief 10 MG eCW1 ([facility]) Loratadine Allergy Relief 10 MG UNK 08/08/2019 12:00:00 AM EST 1.0 {tablet_on_the_tongue_and_allow_to_dissolve} activ e Loratadine Allergy Relief 10 MG eCW1 ([facility]) Loratadine Allergy Relief 10 MG UNK 08/08/2019 12:00:00 AM EST 1.0 {tablet_on_the_tongue_and_allow_to_dissolve} activ e Loratadine Allergy Relief 10 MG eCW1 ([facility]) Loratadine Allergy Relief 10 MG UNK 08/08/2019 12:00:00 AM EST 1.0 {tablet_on_the_tongue_and_allow_to_dissolve} activ e Loratadine Allergy Relief 10 MG eCW1 ([facility]) Loratadine Allergy Relief 10 MG UNK 08/08/2019 12:00:00 AM EST active 1 tablet on the tongue and allow to diss olve eCW1 ([facility]) doxycycline hyclate 100 MG Oral Capsule Doxycycline Hy clate 100 MG Doxycycline Hyclate 100 MG 08/08/2019 12:00:00 AM EST active 1 capsule eCW1 ([facility]) Loratadine Allergy Relief 10 MG UNK 08/08/2019 12:00:00 AM EST 1.0 {tablet_on_the_tongue_and_allow_to_dissolve} activ e Loratadine Allergy Relief 10 MG eCW1 ([facility]) Naproxen 600 MG Oral Tablet Naproxen 600 MG Oral Tablet 07/20 12:00:00 AM EST 1 active Naproxen HOLLY (Lukas Scherer MD [facility]) Dexamethasone 1 MG/ML / Tobramycin 3 MG/ ML Ophthalmic Suspension [Tobradex] TobraDex 0.3-0.1% Ophthalmic Suspension TobraDex 0.3-0.1% Ophthalmic Suspension 11/16/2018 12:00:00 AM EDT aborted Dexamethasone 1 MG/ML / Tobramycin 3 MG/ML Ophthalmic Suspension [Tobradex] HOLLY (Lukas Scherer MD [facility]) moxifloxacin 5 MG/ML Ophthalmic Solution Moxifloxacin HCl 0.5% Ophthalmic Solution Moxifloxacin HCl 0.5% Ophthalmic Solution 11/16/2018 12:00:00 AM EDT aborted moxifloxacin 5 MG/ML Oph thalmic Solution HOLLY (Lukas Scherer MD [facility]) besifloxacin 6 MG/ML Ophthalmic Suspensi on [Besivance] Besivance 0.6% Ophthalmic Suspension Besivance 0.6% Ophthalmic Suspension 06/09/2018 12:00:00 AM EST aborted besifloxacin 6 MG/ML Ophthalmic Suspension [Besivance] HOLLY (Lukas Scherer MD [facility]) prednisolone acetate 10 MG/ML Ophthalmic Suspension [Pred Forte] Pred Forte 1% Ophthalmic Suspension Pred Forte 1% Ophthalmic Suspension 06/09/2018 12:00:0 0 AM EST aborted predniso lone acetate 10 MG/ML Ophthalmic Suspension [Pred Forte] HOLLY (Lukas Scherer MD [facility]) BromSite 0.075% Ophthalmic Solution BromSite 0.075% Ophthalm ic Solution 06/09/2018 12:00:00 AM EST aborted bromfenac 0.75 MG/ML Ophthalmic Solution [Bromsite] HOLLY (Lukas Scherer MD [facility]) meloxicam 15 MG Oral Tablet [Mobic] Mobic 15 MG Tablet Mobic 15 MG Tablet 08/21/2015 12:00:00 AM EST 1 aborted meloxicam 15 MG Oral Tablet [Mobic] HOLLY (Lukas Scherer MD [facility]) [facility] Calcium 1500 (600 Ca) MG Tablet [facility] Calcium 1500 (600 Ca ) MG Tablet 08/21/2015 12:00:00 AM EST 1 aborted [facility] Calcium [facility] (Lukas Scherer MD [facility]) HM Vitamin B12 500 MCG Tablet HM Vitamin B12 500 MCG Tablet 08/21/2015 12:00:00 AM EST 1 aborted HM Vitamin B12 G REENWAY (Lukas Scherer MD [facility]) Magnesium 500 MG Capsule, conventional Magnesium 500 MG Caps ule, conventional 08/21/2015 12:00:00 AM EST 1 aborted Magnesium HOLLY (Lukas Scherer MD [facility]) Insurance Providers Payer name Policy type / Coverage type Policy ID Covered constitution party ID Covered constitution party's relationship to louis Policy Louis Plan Information [employer] [place]/307 [id number] SP [id number] [place] [place]/307 [id number] SP [id number] [place] [place]/307 [id number] SP [id number] [place] [place] 306/806 [id number] SP [id number] SELF PAY ONLY [id number] SP [id number] [employer] [place] 306/806 [id number] SP [id number] BCBS of [facility] Other 0 Self 0 ANSI-Commercial [id number] ANSI-Commercial [id number] ANSI-Commercial [id number] ANSI-Commercial [id number] ANSI-Commercial [id number] EXCELLUS C [id number] Self [id number] ANSI-Commercial [id number] ANSI-Commercial [id number] ANSI-Commercial [id number] ANSI-Commercial [id number] ANSI-Commercial [id number] [employer] [place] 302/307 [id number] SP [id number] [facility] [id number] SP [id number] ANSI-Commercial [id number] ANSI-Commercial [id number] ANSI-Commercial [id number] BCBS of [facility] Other 0 Self 0 EXCELLUS BCBS B [id number] S [id number] [id number] BS [place] Medigap Part B [id number] Self [id number] [employer] [place] Medigap Part B [id number] Self [id number] BS [place] Commercial [id number] Self [id number] BCBS/[employer] Commercial [id number] Self [id number] [employer] [place] PPO 302/307 [id number] SP [id number] BCBS/[place] Commercial Self BCBS OF [place] 306/806 [id number] SP [id number] [employer] [place] PPO 302/307 [id number] SP [id number] [facility] P UNAVAILABLE C UNAVAILABLE EXCELLUS BCBS S [id number] S [id number] [facility] P UNAVAILABLE C UNAVAILABLE [id number] Problems, Conditions, and Diagnoses Code Display Name Description Problem Type Effective Dates Data Source(s) N20.0 Kidney stone Kidney stone on right side Problem 0 08/07/2020 12:00:00 AM EST eCW1 ([facility]) I10 14158978 Essential hypertension Problem 07/03/2020 12 :00:00 AM EST eCW1 ([facility]) J30.9 00009008 Allergic rhinitis, unspecified s easonality, unspecified trigger Problem 11/04/2019 12:00:00 AM EDT eCW1 ([facility]) J30.9 [id number] Allergic rhinitis, unspecified s easonality, unspecified trigger Problem 11/04/2019 12:00:00 AM EDT eCW1 ([facility]) 379.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 Lindquist 07/01/18 ~PCIOL OS by Dr. Lindquist 06/17/18 History of extracapsular cataract extraction PCIOL OD by Dr. Lindquist 07/01/18 ~PCIOL OS by Dr. Lindquist 06/17/18 08/05/2019 12:00:00 AM EST HOLLY (Compa charlene Scherer MD [facility]) Surgical / procedural history D&C- 1979 &1982, BTL- 1991, Hysteroscopy ablation of endometrial lining-1998, Right hip replacement-2002, Gastric bypass-2005, L hip replacement-2007, L trigger finger surgery-2011, Left wrist surgery- 2012 Surgical / procedural history D&C- 1978 &1983, BTL- 1991, Hysteroscopy ablation of endometrial lining-1998, Right hip replacement-2002, Gastric bypass-2005, L hip replacement-2007, L trigger finger surgery-2011, Left wrist surgery- 201208/05/2019 12:00:00 AM EST [facility] (Lukas hayes MD [facility]) Intermediate Eye Exam Established Patient Intermediate Eye Exam Established Patient 08/05/2019 12:00:00 AM EST HO[facility] (Compa charlene Scherer MD [facility]) Results ID Date Data Source [id number] 09/02/2020 09:30:00 AM EST [facility] Name Value Range Interpretation Code Description Data Dianna rce(s) Supporting Document(s) SARS coronavirus 2 RNA Not Detected [facility] [place] This lab was ordered by [facility] and reported by [facility]. ID Date Data Source URINE CULTURE 07/24/2020 12:00:00 AM EST eCW1 ([facility]) Name Value Range Interpretation Code Description Data Dianna rce(s) Supporting Document(s) URINE CULTURE eCW1 ([facility]) ID Date Data Source UA URINALYSIS 07/24/2020 12:00:00 AM EST eCW1 ([facility]) Name Value Range Interpretation Code Description Data Dianna rce(s) Supporting Document(s) UA URINALYSIS eCW1 ([facility]) ID Date Data Source [id number] 06/04/2020 12:00:00 AM EST [facility] Name Value Range Interpretation Code Description Data Dianna rce(s) Supporting Document(s) 2019-nCoV RNA XXX ADINA+probe-Imp [facility] This lab was ordered by [facility] and reported by [employer] ID Date Data Source [id number] 05/08/2020 12:00:00 AM [facility] Name Value Range Interpretation Code Description Data Dianna rce(s) Supporting Document(s) SARS coronavirus 2 Ag [facility] This lab was ordered by [facility] and reported by [facility]. Procedure Social History Code Duration Value Status Description Data Source(s ) Smoking 08/07/2020 12:00:00 AM EST Former Smoker completed Former Smoker eCW1 ([facility]) Smoking 08/07/2020 12:00:00 AM EST Former Smoker completed Former Smoker eCW1 ([facility]) Smoking 08/07/2020 12:00:00 AM EST Former Smoker completed Former Smoker eCW1 ([facility]) Smoking 07/24/2020 12:00:00 AM EST Former Smoker completed Former Smoker eCW1 ([facility]) Smoking 07/03/2020 12:00:00 AM EST Former Smoker completed Former Smoker eCW1 ([facility]) Smoking 07/03/2020 12:00:00 AM EST Former Smoker completed Former Smoker eCW1 ([facility]) Smoking 07/03/2020 12:00:00 AM EST Former Smoker completed Former Smoker eCW1 ([facility]) Smoking 05/08/2020 12:00:00 AM EDT Patient is a former smoker completed Patient is a former smoker MEDENT ([facility]) Smoking 12/14/2019 12:00:00 AM EDT Former Smoker completed Former Smoker eCW1 ([facility]) Smoking 08/05/2019 09:23:52 AM EST Ex-smoker (finding) [facility] ed Ex-smoker (finding) [facility] (Lukas Scherer MD [facility]) Vital Signs ID Date Data Source UNK Name Value Range Interpretation Code Description Data Source(s) Diastolic blood pressure 72 mm[Hg] 72 mm[Hg] eCW1 ([facility]) Systolic blood pressure 104 mm[Hg] 104 mm[Hg] e CW1 ([facility]) Respiratory rate 18 /min 18 /min eCW1 ([facility]) Heart rate 58 /min 58 /min eCW1 ([facility]) Body mass index (BMI) [Ratio] 31.01 kg/m2 31.01 kg/m2 W1 ([facility]) Body height 68 [in_i] 68 [in_i] eCW1 ([facility]) Body weight 204 [lb_av] 204 [lb_av] eCW1 ([facility]) Diastolic blood pressure 78 mm[Hg] 78 mm[Hg] eCW1 ([facility]) Systolic blood pressure 122 mm[Hg] 122 mm[Hg] e CW1 ([facility]) Body temperature 97.3 [degF] 97.3 [degF] eCW1 ( [facility]) Respiratory rate 18 /min 18 /min eCW1 ([facility]) Heart rate 81 /min 81 /min eCW1 ([facility]) Body mass index (BMI) [Ratio] 31.32 kg/m2 31.32 kg/m2 eCW1 ([facility]) Body height 68 [in_i] 68 [in_i] eCW1 ([facility]) Body weight 206 [lb_av] 206 [lb_av] eCW1 ([facility]) Diastolic blood pressure 80 mm[Hg] 80 mm[Hg] eCW1 ([facility]) Systolic blood pressure 164 mm[Hg] 164 mm[Hg] e CW1 ([facility]) Body temperature 97.9 [degF] 97.9 [degF] eCW1 ( [facility]) Respiratory rate 18 /min 18 /min eCW1 ([facility]) Heart rate 98 /min 98 /min eCW1 ([facility]) Body mass index (BMI) [Ratio] 30.44 kg/m2 30.44 kg/m2 eCW1 ([facility]) Body height 68 [in_i] 68 [in_i] eCW1 ([facility]) Body weight 200.2 [lb_av] 200.2 [lb_av] eCW1 ([facility]) Body mass index (BMI) [Ratio] 31.5 kg/m2 31.5 k g/m2 MEDENT ([facility] [place], [facility]) Body height 67 [in_i] 67 [in_i] MEDENT ([facility], [facility]) 5'7" Body weight 201.00 [lb_av] 201.00 [lb_av] MEDEN T ([facility], [facility]) Body temperature 97.1 [degF] 97.1 [degF] MEDENT ([facility]) Oxygen saturation in Arterial blood by Pulse oximetry 97 % 97 % MEDENT ([facility]) Respiratory rate 14 /min 14 /min MED[facility] ( [facility]) Heart rate 84 /min 84 /min MEDENT ([facility] [place], [facility]) Diastolic blood pressure 82 mm[Hg] 82 mm[Hg] MEDENT ([facility], [facility]) Systolic blood pressure 123 mm[Hg] 123 mm[Hg] M EDENT ([facility], [facility]) Diastolic blood pressure 68 mm[Hg] 68 mm[Hg] eCW1 ([facility]) Systolic blood pressure 110 mm[Hg] 110 mm[Hg] e CW1 ([facility]) Body temperature 97.4 [degF] 97.4 [degF] eCW1 ( [facility]) Respiratory rate 18 /min 18 /min eCW1 ([facility]) Heart rate 113 /min 113 /min eCW1 ([facility]) Body mass index (BMI) [Ratio] 30.41 kg/m2 30.41 kg/m2 eCW1 ([facility]) Body height 68 [in_i] 68 [in_i] eCW1 ([facility]) Body weight 200.0 [lb_av] 200.0 [lb_av] eCW1 ([facility]) Diastolic blood pressure 82 mm[Hg] 82 mm[Hg] eCW1 ([facility]) Systolic blood pressure 118 mm[Hg] 118 mm[Hg] e CW1 ([facility]) Body temperature 97.0 [degF] 97.0 [degF] eCW1 ( [facility]) Respiratory rate 18 /min 18 /min eCW1 ([facility]) Heart rate 87 /min 87 /min eCW1 ([facility]) Body mass index (BMI) [Ratio] 30.77 kg/m2 30.77 kg/m2 eCW1 ([facility]) Body height 68 [in_us] 68 [in_us] eCW1 ([facility]) Body weight Measured 202.4 [lb_av] 202.4 [lb_av ] eCW1 ([facility]) Diastolic blood pressure 78 mm[Hg] 78 mm[Hg] eCW1 ([facility]) Systolic blood pressure 118 mm[Hg] 118 mm[Hg] e CW1 ([facility]) Body temperature 97.3 [degF] 97.3 [degF] eCW1 ( [facility]) Respiratory rate 18 /min 18 /min eCW1 ([facility]) Heart rate 94 /min 94 /min eCW1 ([facility]) Body mass index (BMI) [Ratio] 30.56 kg/m2 30.56 kg/m2 W1 ([facility]) Body height 68 [in_us] 68 [in_us] eCW1 ([facility]) Body weight Measured 201.0 [lb_av] 201.0 [lb_av ] eCW1 ([facility]) Patient Treatment Plan of Care Planned Activity Planned Date Details Description Data Source (s) Prednisone 20 MG Oral Tablet 07/03/2020 12:00:00 AM EST eCW1 ([facility]) carvedilol 12.5 MG Oral Tablet 07/03/2020 12:00:00 AM EST eCW1 ([facility]) Prednisone 20 MG Oral Tablet 07/03/2020 12:00:00 AM EST eCW1 ([facility]) carvedilol 12.5 MG Oral Tablet 07/03/2020 12:00:00 AM EST eCW1 ([facility]) Prednisone 20 MG Oral Tablet 07/03/2020 12:00:00 AM EST eCW1 ([facility]) carvedilol 12.5 MG Oral Tablet 07/03/2020 12:00:00 AM EST eCW1 ([facility]) Cephalexin 500 MG Oral Capsule [Keflex] 12/14/2019 12:00:00 AM EDT eCW1 ([facility]) Triamcinolone Acetonide 0.001 MG/MG Topical Ointment 020 12:00:00 AM EDT eCW1 ([facility]) Fluconazole 200 MG Oral Tablet [Diflucan] 12/14/2019 12:00:00 AM ED T eCW1 ([facility]) montelukast 10 MG Oral Tablet [Singulair] 11/04/2019 12:00:00 AM ED T eCW1 ([facility]) Prednisone 20 MG Oral Tablet 11/04/2019 12:00:00 AM EDT eCW1 ([facility]) montelukast 10 MG Oral Tablet [Singulair] 11/04/2019 12:00:00 AM ED T eCW1 ([facility]) doxycycline hyclate 100 MG Oral Capsule 08/08/2019 12:00:00 AM EST eCW1 ([facility]) Dexamethasone 1 MG/ML / Tobramycin 3 MG/ML Ophthalmic Suspension [Tobradex] 11/16/2018 12:00:00 AM EDT HOLLY (Compa Scherer MD [facility]) moxifloxacin 5 MG/ML Ophthalmic Solution 11/16/2018 12:00:00 AM EDT [facility] (Lukas Scherer MD [facility]) besifloxacin 6 MG/ML Ophthalmic Suspension [Besivance] 06/09/2018 12:00:00 AM EST [facility] (Lukas Scherer MD [facility]) BromSite 0.075% Ophthalmic Solution 06/09/2018 12:00:00 AM EST [facility] (Lukas Scherer MD [facility]) prednisolone acetate 10 MG/ML Ophthalmic Suspension [P red Forte] 06/09/2018 12:00:00 AM EST [facility] (Lukas Scherer MD [facility])
--- OUTSIDE RECORDS SUMMARY | 2020-09-07 07:35 | CCD ---
Author Author [facility] Organization [facility] Address Unknown Phone Unavailable Care Team Providers Care Billing Manager Name Role Phone Jann Zaidi Unavailable PROBLEMS Type Condition ICD9-CM Code [id number] Code Onset Dates Condition S tatus SNOMED Code Notes Problem Osteoarthritis M19.90 Active [id number] She has moderate arthritis and was on on meloxicam but I switched her to naproxen with success in early 2018. She is also on Gabapentin and she is back on Wellbutrin instead of Cymbalta; she takes very occasional doses of tramadol. She has in the past taken a fair amount of ozvt-bcn-trnjmpe NSAID therapy which I advised against, and given her decline in renal function and hypertension as of June 2020 I recommended that she limit her NSAID use. ESR and CBC normal in Fall 2014. She increased her gabapentin to 600 mg at bedtime as of April 2016. 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 She is on estrogen replacement therapy, vitamin D and calcium supplementation. This will be followed. 2019 bone density study revealed a T score -2.2 in her spine. She will continue present therapy. Problem Elevated cholesterol E78.00 Active 865855277 S he has a history of hypercholesterolemia. Her HDL is favorable and her LDL has not been adverse. Her recent lab work from June 2020 reflects adequate lipid control. Problem Allergic rhinitis, unspecified seasonality, unspecifie d trigger J30.9 Active 44970962 She has persistent s inus discomfort related [...] prednisone. Problem Hormone replacement therapy Z79.890 Active 3125 94190 She is on Prempro therapy and wishes to maintain that. I advised a slow taper in the past. She sees a gynecologic provider. Problem Essential hypertension I10 Active 32971767 She has developed elevated blood pressures as [...] Problem History of bariatric surgery Z98.84 Active 834 160786 She had bariatric surgery 2005 and is watched for complications. Vitamin B12 level was normal at 357 most recently in June 2020 and vitamin D level were last done in March 2019. Problem Anxiety associated with depression F41.8 Activ e 429529137 She is back on Wellbutrin and off [...] recommended. Problem Vitamin D deficiency E55.9 Active 19445368 Harpal mcgregor takes 5000 units of vitamin D daily. Her vitamin D level was 43 in March 2019. Problem Shortness of breath R06.02 Active 481675635 Harpal mcgregor has had extensive testing for [...] Reaction Allergy Type Onset Date Status fentanyl Fentanyl([facility] Code:[address]-78) amnesia Drug Allergy Active Penicillin (For Allergies Use Only) Rash Drug Allerg y Active ampicillin Ampicillin([facility] Code:[address]-97) Rash Drug Allergy Active ENCOUNTERS from 1955 to 2020-07-10 Encounter Location Date Provider Diagnosis [address] [address] Jun, Jann Dejuan Elevated cholesterol E78.00 ; History of bariatric surgery Z98.84 ; Anxiety associated with depression F41.8 ; Hormone replacement therapy Z79.890 ; Osteopenia M85.80 ; Vitamin D deficiency E55.9 ; Osteoarthritis M19.90 ; Shortness of breath R06.02 ; Allergic rhinitis, unspecified seasonality, unspecified trigger J30.9 ; Essential hypertension I10 and Screening for colon cancer Z12.11 IMMUNIZATIONS Vaccine Route Administration Date Status Zoster [...] Education Language: Question Answer Notes Languages spoken: Montserratian Sexual Hx: Question Answer Notes Had sex [...] FOR REFERRAL No Information VITAL SIGNS Weight 200.2 lbs Jun, Height 68 in Jun, BMI 30.44 kg/m2 Jun, Heart Rate 98 /min Jun, Respiratory Rate 18 /min Jun, Temperature 97.9 degrees Fahrenheit Jun, Oximetry 99% Jun, Blood pressure systolic 164 mm Hg Jun, Blood pressure diastolic 80 mm Hg Jun, MEDICATIONS Medication SIG (Take, Route, Frequency, Duration) [...] a s needed for arthritis Sep, Active Triamcinolone Acetonide 0.1 % 1 application Externally Twice a day to left leg for 10 days November, Active Vitamin D3 5000 unit 1 tablet Orally Once a day Active ProAir HFA 108 (90 Base) mcg/act 2 puffs Inhalation ev yanira 4 hours as needed for shortness of breath for 90 day(s) Mar, Active Loratadine Allergy Relief 10 MG 1 tablet on the tongue and allow to dissolve Orally Once a day for 30 day(s) Jul, Active Nasacort Allergy 24HR 55 MCG/ACT 2 sprays in each nost ril Nasally 1-2 times a day Active Prempro 0.3-1.5 MG 1 tablet Orally Every day for 90 days Active Multiple Vitamin _ 1 tablet Orally Once a day Active Tramadol HCl 50 MG 1/2-1 tab Orally every 12 ho urs as needed for pain/MMD=2 for 30 days Feb, Active Wellbutrin XL 300 MG 1 tablet in the morning Oral ly Once a day with 150mg to equal 450mg daily Active Vitamin B 12 500 MCG 2 tab(s) Orally Once a day Active Calcium 500 mg 1 tablet with meals Orally Once a day Active Singulair 10 MG 1 tablet Orally Once a day for 90 days Oct, Active PredniSONE 20 MG 1 tablet Orally Once a day for 7 days Jun, Active Aspir-Low 81 MG 1 tablet Orally Once a day May, Active PROCEDURES No Information RESULTS No Results REASON FOR VISIT 6 month follow up with labs to review MEDICAL (GENERAL) HISTORY Type Description Date Medical [...] Treatment Notes Treatm ent Clinical Notes Jun, Elevated cholesterol (ICD-10 - E78.00) S he has a history of hypercholesterolemia. Her HDL is favorable and her LDL has not been adverse. Her recent lab work from June 2020 reflects adequate lipid control. Jun, History of bariatric surgery (ICD-10 - Z 98.84) She had bariatric surgery 2005 and is watched for complications. Vitamin B12 level was normal at 357 most recently in June 2020 and vitamin D level were last done in March 2019. Jun, Anxiety associated with depression (ICD- 10 - F41.8) She is back on Wellbutrin and off [...] and November 2018 and psychotherapy was recommended. Jun, Hormone replacement therapy (ICD-10 - Z7 9.890) She is on Prempro therapy and wishes to maintain that. I advised a slow taper in the past. She sees a gynecologic provider. 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 She is on estrogen replacement therapy, vitamin D and calcium supplementation. This will be followed. 2019 bone density study revealed a T score -2.2 in her spine. She will continue present therapy. Jun, Vitamin D deficiency (ICD-10 - E55.9) Harpal mcgregor takes 5000 units of vitamin D daily. Her vitamin D level was 43 in March 2019. Jun, Osteoarthritis (ICD-10 - M19.90) She has moderate arthritis and was on on meloxicam but I switched her to naproxen with success in early 2018. She is also on Gabapentin and she is back on Wellbutrin instead of Cymbalta; she takes very occasional doses of tramadol. She has in the past taken a fair amount of fvfc-gye-urttcbf NSAID therapy which I advised against, and given her decline in renal function and hypertension as of June 2020 I recommended that she limit her NSAID use. ESR and CBC normal in Fall 2014. She increased her gabapentin to 600 mg at bedtime as of April 2016. Jun, Shortness of breath (ICD-10 - R06.02) Harpal mcgregor has had extensive testing for [...] controlled her shortness of breath quite well. Jun, Allergic rhinitis, unspecifi ed seasonality, unspecified trigger (ICD-10 - J30.9) She has persistent sinus discomfort rela kev to allergic rhinitis. She will does intensify [...] also given her a course of prednisone. Jun, Essential hypertension (ICD-10 - I10) Harpal mcgregor has developed elevated blood pressures as of June 2020. She is using some Sudafed and is also on nonsteroidal anti-inflammatory drug therapy. She should avoid Sudafed and her nonsteroidal but I instituted to carvedilol therapy in June 2020 which I think will help with her anxiety, control some palpitations she is experiencing, and hopefully control her blood pressure. I ordered a renal ultrasound because of her renal insufficiency and we will evaluate her renal blood flow also. Jun, Screening for colon cancer (ICD-10 - Z12.11) PLAN OF TREATMENT Medication Medication Name Sig Start Date Stop Date PredniSONE 20 MG 1 tablet Orally Once a day for 7 days Jun, Tramadol HCl 50 MG 1/2-1 tab Orally every 12 ho urs as needed for pain/MMD=2 for 30 days Feb, Carvedilol 12.5 MG 1 tablet Orally Twice a day for 30 day(s) Jun, Treatment Notes Test Name Order Date Cologuard (Send Out Only) 2020-07-10 [facility] RENAL US 2020-07-10 [facility] RENAL DOPPLER FLOW 2020-07-10 Future Test Test Name Order Date Basic Metabolic Profile (BMP) [id number] Next Appt Details 3 Months Reason: Provider Name:Jann Dejuan, 2020-10-01 09 :00:00 AM, [facility] [place], [address], Insurance Providers Payer Name Payer Address Payer Phone Insured Name Patient Relati onship to Insured Coverage Start Date Coverage End Date BCBS [place] PPO [phone] [facility] [place] [id number] YARELI GRIMES self
--- OUTSIDE RECORDS SUMMARY | 2020-09-07 07:35 | CCD ---
Author Author [facility] Organization [facility] Address Unknown Phone Unavailable Care Team Providers Care Avionics Shop Supervisor Name Role Phone Marianela Wellington Unavailable PROBLEMS Type Condition ICD9-CM Code [id number] Code Onset Dates Condition S tatus SNOMED Code Notes Problem Osteopenia M85.80 Active [id number] She has ost eoporosis of her spine on bone density as of 2008, 2014, 2019. She is on estrogen replacement therapy, vitamin D and calcium supplementation. This will be followed. 2019 bone density study revealed a T score -2.2 in her spine. She will continue present therapy. Problem Elevated cholesterol E78.00 Active 953820533 S he has a history of hypercholesterolemia. Her HDL is favorable and her LDL has not been adverse. Her recent lab work from June 2020 reflects adequate lipid control. Problem History of bariatric surgery Z98.84 Active 623 243250 She had bariatric surgery 2006 and is watched for complications. Vitamin B12 level was normal at 357 most recently in June 2020 and vitamin D level were last done in March 2019. Problem Essential hypertension I10 Active 08812673 She has developed elevated blood pressures as [...] blood flow also. Problem Osteoarthritis M19.90 Active 161653933 She has moderate arthritis and was on on meloxicam but I switched her to naproxen with success in early 2018. She is also on Gabapentin and she is back on Wellbutrin instead of Cymbalta; she takes very occasional doses of tramadol. She has in the past taken a fair amount of crib-pjx-unucbhr NSAID therapy which I advised against, and given her decline in renal function and hypertension as of June 2020 I recommended that she limit her NSAID use. ESR and CBC normal in Fall 2014. She increased her gabapentin to 600 mg at bedtime as of April 2016. Problem Kidney stone on right side N20.0 Active 33449 007 Problem Hormone replacement therapy Z79.890 Active 0626 38315 She is on Prempro therapy and wishes to maintain that. I advised a slow taper in the past. She sees a gynecologic provider. Problem Anxiety associated with depression F41.8 Activ e 041509308 She is back on Wellbutrin and off [...] recommended. Problem Vitamin D deficiency E55.9 Active 95181168 Harpal mcgregor takes 5000 units of vitamin D daily. Her vitamin D level was 43 in March 2019. Problem Shortness of breath R06.02 Active 115935048 Harpal mcgregor has had extensive testing for [...] unspecified seasonality, unspecifie d trigger J30.9 Active 76686796 She has persistent s inus discomfort related [...] Onset Date Status fentanyl Fentanyl([facility] Code:[address]-08) amnesia Drug Allergy Active Penicillin (For Allergies Use Only) Rash Drug Allerg y Active ampicillin Ampicillin([facility] Code:[address]-37) Rash Drug Allergy Active ENCOUNTERS from 1955 to 2020-08-07 Encounter Location Date Provider Diagnosis [facility] [address] [place] [address] Jul Marianela Wellington IMMUNIZATIONS Vaccine Route Administration Date Status Zoster [...] Education Language: Question Answer Notes Languages spoken: Tamazight Sexual Hx: Question Answer Notes Had sex [...] Information RESULTS No Results REASON FOR VISIT needs follow up MEDICAL (GENERAL) HISTORY Type Description Date Medical [...] PLAN OF TREATMENT Next Appt Details Provider Name:Jann Dejuan, 2020-10-01 10 :30:00 AM, [address] [place] [address], [phone], Provider Name:Amado Stockton, 2020-11-12 0 8:20:00 AM, [address] [place] [address], [phone], Insurance Providers Payer Name Payer Address Payer Phone Insured Name Patient Relati onship to Insured Coverage Start Date Coverage End Date [phone] [facility] [employer] [place] [address] YARELI GRIMES self
--- OUTSIDE RECORDS SUMMARY | 2020-09-07 07:35 | CCD ---
Author Author [facility] Organization [facility] Address Unknown Phone Unavailable Care Team Providers Care Air Turning Machine Feeder Name Role Phone Jann Zaidi Unavailable PROBLEMS Type Condition ICD9-CM Code [id number] Code Onset Dates Condition S tatus SNOMED Code Notes Problem Osteoarthritis M19.90 Active 539803077 She has moderate arthritis and was on on meloxicam but I switched her to naproxen with success in early 2018. She is also on Gabapentin and she is back on Wellbutrin instead of Cymbalta; she takes very occasional doses of tramadol. She has in the past taken a fair amount of nnwt-etg-bztvkbw NSAID therapy which I advised against, and given her decline in renal function and hypertension as of June 2020 I recommended that she limit her NSAID use. ESR and CBC normal in Fall 2014. She increased her gabapentin to 600 mg at bedtime as of April 2016. Problem Osteopenia M85.80 Active 139071452 She has ost eoporosis of her spine on bone density as of 2008, 2014, 2019. She is on estrogen replacement therapy, vitamin D and calcium supplementation. This will be followed. 2019 bone density study revealed a T score -2.2 in her spine. She will continue present therapy. Problem Elevated cholesterol E78.00 Active 714131584 S he has a history of hypercholesterolemia. Her HDL is favorable and her LDL has not been adverse. Her recent lab work from June 2020 reflects adequate lipid control. Problem Allergic rhinitis, unspecified seasonality, unspecifie d trigger J30.9 Active 82081946 She has persistent s inus discomfort related [...] prednisone. Problem Hormone replacement therapy Z79.890 Active 4432 35859 She is on Prempro therapy and wishes to maintain that. I advised a slow taper in the past. She sees a gynecologic provider. Problem Essential hypertension I10 Active 76653009 She has developed elevated blood pressures as [...] Problem History of bariatric surgery Z98.84 Active 366 359006 She had bariatric surgery 2005 and is watched for complications. Vitamin B12 level was normal at 357 most recently in June 2020 and vitamin D level were last done in March 2019. Problem Anxiety associated with depression F41.8 Activ e 366413570 She is back on Wellbutrin and off [...] recommended. Problem Vitamin D deficiency E55.9 Active 04000128 Harpal mcgregor takes 5000 units of vitamin D daily. Her vitamin D level was 43 in March 2019. Problem Shortness of breath R06.02 Active 415600272 Harpal mcgregor has had extensive testing for [...] Reaction Allergy Type Onset Date Status fentanyl Fentanyl([facility] Code:[address]-28) amnesia Drug Allergy Active Penicillin (For Allergies Use Only) Rash Drug Allerg y Active ampicillin Ampicillin([facility] Code:[address]-42) Rash Drug Allergy Active ENCOUNTERS from 1957 to 2020-07-11 Encounter Location Date Provider Diagnosis [address] [address] Jun, Jann Quirose Shortness of breath R06.02 IMMUNIZATIONS Vaccine Route Administration Date Status Zoster [...] Education Language: Question Answer Notes Languages spoken: Burundian Sexual Hx: Question Answer Notes Had sex [...] Information RESULTS No Results REASON FOR VISIT refill-proair MEDICAL (GENERAL) HISTORY Type Description Date Medical [...] Treatment Notes Treatm ent Clinical Notes Jun, Shortness of breath (ICD-10 - R06.02) PLAN OF TREATMENT Medication Medication Name Sig [...] Provider Name:Jann Zaidi, 2020-10-01 09 :00:00 AM, [facility] [place], [address], Insurance Providers Payer Name Payer Address Payer Phone Insured Name Patient Relati onship to Insured Coverage Start Date Coverage End Date [facility] [place] [facility] [phone] [facility] [place] [address] YARELI GRIMES self
[2020-09-07] MEDS ORDERED: propofoL 200 MG/20 ML VIAL As Ordered ONE (08:05)
[2020-09-07] MEDS ORDERED: fentaNYL 100 MCG/2 ML INJECTION (J3010) As Ordered ONE (08:05)
[2020-09-07] MEDS ORDERED: LIDOCAINE 2% 100MG/5ML SDV (FOR ANES.) As Ordered ONE (08:05)
[2020-09-07] MEDS ORDERED: MIDAZOLAM INJ 2MG/2ML VIAL (J2250 PER 1MG) As Ordered ONE (08:06)
[2020-09-07] MEDS ORDERED: CONRAY-60 60% 50ML VIAL (Q9961) As Ordered ONE (09:26)
[2020-09-07] MEDS ORDERED: ePHEDrine SULFATE 25 MG/5 ML(5MG/ML) SYRINGE As Ordered ONE (09:55)
[2020-09-07] MEDS ORDERED: dexameTHASONE 4 MG/ML 1ML VIAL (J1100 PER 1MG) As Ordered ONE (09:58)
[2020-09-07] MEDS ORDERED: ACETAMINOPHEN 1000MG 100ML IV BTL (OFIRMEV) (J0131 PER 10MG) As Ordered ONE (10:01)
[2020-09-07] MEDS ORDERED: ONDANSETRON 4MG/2ML VIAL As Ordered ONE (10:01)
[2020-09-07] MEDS ORDERED: PHENYLephrine 500MCG 5ML (100MCG/ML) SYRINGE As Ordered ONE (10:10)
--- NOTE | 2020-09-07 11:01 | REP ---
INDICATION: RIGHT CYSTO, STENT. COMPARISON: None. TECHNIQUE: Two views. 14 seconds of fluoroscopy time is reported. FINDINGS: A sequence of 2 last image hold fluoroscopically obtained spot radiographs of the abdomen document right ureteral cannulation, contrast injection, and stent placement. IMPRESSION: Procedural imaging. <Electronically signed by Doe Wheeler > 09/07/20 [id number]
[2020-09-07] MEDS ORDERED: FLOM0.4C39 PO (11:07)
[2020-09-07] MEDS ORDERED: oxyCODONE 5MG TAB PO PRN (11:45)
[2020-09-07] MEDS ORDERED: PERCOCET 5MG/325MG TAB PO PRN (11:45)
[2020-09-07] MEDS ORDERED: LR 1,000 ML IV SCH (11:45)
[2020-09-07] MEDS ORDERED: fentaNYL 100 MCG/2 ML INJECTION (J3010) IV PRN (11:45)
[2020-09-07] MEDS ORDERED: ONDANSETRON 4MG/2ML VIAL IV PRN (11:45)
[2020-09-07 12:00] VITALS: BP 128/72
--- NOTE | 2020-09-07 15:52 | RO ---
OPERATIVE NOTE DATE OF OPERATION: 09/07/2020 PREOPERATIVE DIAGNOSIS: Right kidney stone. POSTOPERATIVE DIAGNOSIS: Right kidney stone. PROCEDURES: Cystoscopy, right ureteroscopy with laser lithotripsy and basket extraction of stones, right retrograde pyelogram with intraoperatively interpreted images, right ureteral stent placement. SURGEON: Dr. Johann Heath CARCASS SPLITTER: None. ANESTHESIA: General. OPERATIVE INDICATIONS: This 65-year-old female was found to have a nonobstructing 1.6 cm right kidney stone. She was brought to the operating room today for treatment. DESCRIPTION OF PROCEDURE: The patient was brought to the operating room, and general anesthesia was induced. Prophylactic antibiotics were infused. She was placed in the dorsal lithotomy position, prepped and draped in the usual sterile fashion. The rigid cystocope was inserted into the urethral meatus and advanced into the bladder. A guidewire was advanced up the right collecting system. A ureteral access sheath was advanced up the right collecting system. I went up the access sheath with a flexible ureteroscope and examined the right kidney. Within a mid to lower pole jcarlos, the large stone was seen. The stone was fragmented into smaller pieces using a 272 micron laser fiber. All the fragments were removed using a basket. Once done, only very tiny stone fragments remained. These fragments were small enough to pass. A retrograde pyelogram was performed and was notable for mild to moderate right hydronephrosis with no extravasation. I then withdrew the ureteroscope along with the access sheath, and no additional stones were seen in the ureter. I then utilized a guidewire to advance a 6-Uruguayan x 22-32 cm JJ ureteral stent into the right collecting system. The wire was removed, and there were adequate curls of stent in the right renal pelvis and in the bladder. The bladder was then emptied of all fluid. This marked the conclusion of the procedure. The patient was taken out of the dorsal lithotomy position, awakened from anesthesia, and transported to the recovery room in stable condition. ESTIMATED BLOOD LOSS: 5 mL. COMPLICATIONS: None. SPECIMENS: Kidney stone fragments. PLAN: The patient will followup in the neurology clinic in a few weeks for stent removal. MARINO
== END 2020-09-07 13:09 | disposition home or self-care (01) ==
LOC: M SDC 07:30
PROVIDERS: ATTEND Urology
DX: N20.0 Calculus of kidney (principal); E55.9 Vitamin D deficiency, unspecified; F32.9 Major depressive disorder, single episode, unspecified; I10 Essential (primary) hypertension; J45.909 Unspecified asthma, uncomplicated; L30.9 Dermatitis, unspecified; M85.80 Other specified disorders of bone density and structure, unspecified site; T88.59XD Other complications of anesthesia, subsequent encounter; Z78.0 Asymptomatic menopausal state; Z79.899 Other long term (current) drug therapy; Z88.1 Allergy status to other antibiotic agents; Z88.4 Allergy status to anesthetic agent; Z88.5 Allergy status to narcotic agent; Z88.6 Allergy status to analgesic agent; Z96.643 Presence of artificial hip joint, bilateral; Z98.51 Tubal ligation status
CPT/HCPCS: 52356; 74420; 82365; 88300; C1769; C1894; C2617; J0131; J1100; J2370; J2405; J3010; Q9961

== ENCOUNTER → 2020-09-26 | Outpatient (CLI) | payer BC ==
[~2020-09-26] MED LIST changes: +BUPR150T12 PO; -BUPR150T4 PO; +FLOM0.4C39 PO; -LR 1,000 ML IV ONE; -TRIMETHOPRIM/SULFAMETHOXAZOLE 160 MG in D5W 250 ML IV ONE
[2020-09-26 07:35] LABS: CALCIUM LEVEL 9.1 MG/DL (8.8-10.2); CREATININE FOR GFR 1.17 MG/DL (0.55-1.30); GLOMERULAR FILTRATION RATE 49.7 (>45); POTASSIUM SERUM 4.4 MEQ/L (3.5-5.1)
== END ==
LOC: M LAB 06:09
PROVIDERS: ATTEND Internal Medicine
DX: I10 Essential (primary) hypertension (principal)

== ENCOUNTER → 2020-11-12 | Outpatient (REF) | payer BC | LOC: M PLALAB 11:02 | PROVIDERS: ATTEND Advanced Practice Midwife | DX: Z12.4 Encounter for screening for malignant neoplasm of cervix (principal); E04.9 Nontoxic goiter, unspecified | CPT/HCPCS: 87624; G0123 ==

== ENCOUNTER → 2020-11-21 | Outpatient (CLI) | payer BC | LOC: M LAB 06:45 | PROVIDERS: ATTEND Advanced Practice Midwife | DX: E04.9 Nontoxic goiter, unspecified (principal) ==

== ENCOUNTER → 2021-01-04 | Outpatient (CLI) | payer BC ==
--- NOTE | 2021-01-04 13:12 | REPVR ---
PROCEDURE INFORMATION: Exam: MR Head Without and With Contrast Exam date and time: 01/04/2021 10:30 AM Age: 65 years old Clinical indication: Patient HX: Vertigo, dizziness, nausea, weakness TECHNIQUE: Imaging protocol: MR of the head without and with intravenous contrast. Thin section dedicated internal auditory canal (IAC) protocol was utilized with and without contrast. Contrast material: PROHANCE; Contrast volume: 18 ml; Contrast route: INTRAVENOUS (IV); COMPARISON: No relevant prior studies available. FINDINGS: Brain: Labyrinth structures appear normal without evidence of mass or abnormal enhancement. The internal auditory canals are normal without mass or abnormal enhancement. Normal fluid signal is seen in the labyrinth structures. Cerebellopontine angle cisterns appear normal. There is no abnormal leptomeningeal or parenchymal contrast enhancement. Patchy few areas of T2 prolongation in the cerebral white matter are nonspecific, but likely secondary to microvascular disease. Diffusion images are normal. No evidence of acute infarction. No evidence of acute intracranial hemorrhage. No extra-axial fluid collections. Ventricles and cerebrospinal fluid spaces are normal in size and configuration for the patient's age. There is no evidence of mass-effect or midline shift. Flow voids of the [place] and major cerebral vascular structures appear intact. Craniocervical junction appears unremarkable, with normal position of cerebellar tonsils and no evidence of Chiari I malformation. Cerebral ventricles: Normal. No ventriculomegaly. Bones/joints: Unremarkable as visualized. Paranasal sinuses: Normal as visualized. No acute sinusitis. Mastoid air cells: No significant mastoid effusion. Orbital cavity: There have been bilateral intraocular lens replacements likely related to cataract surgery. Soft tissues: Unremarkable as visualized. IMPRESSION: Minimal microvascular change. No acute infarct, acute hemorrhage, or evidence of mass. Electronically signed by: Neda Frank On 01/04/2021 13:12:24 PM
== END ==
LOC: M PLARAD 08:46
PROVIDERS: ATTEND Internal Medicine
DX: R42 Dizziness and giddiness (principal)

== ENCOUNTER → 2021-02-07 | Outpatient (CLI) | payer BC ==
[2021-02-07 07:53] LABS: ALBUMIN 3.5 GM/DL (3.2-5.2); ALT/SGPT 23 U/L (12-78); BILIRUBIN,TOTAL 0.6 MG/DL (0.2-1.0); BLOOD UREA NITROGEN 20 MG/DL (7-18); CARBON DIOXIDE LEVEL 29 MEQ/L (21-32); CHLORIDE LEVEL 112 MEQ/L (98-107); CHOLESTEROL LEVEL 219 MG/DL (<200); CHOLESTEROL RISK RATIO 2.959 (<5); CREATININE FOR GFR 0.97 MG/DL (0.55-1.30); GLOMERULAR FILTRATION RATE > 60.0 (>45); GLUCOSE, FASTING 88 MG/DL (70-100); HDL CHOLESTEROL 74 MG/DL (>40); LDL CHOLESTEROL 123 MG/DL (<100); NON-HDL-C 145 MG/DL; POTASSIUM SERUM 3.8 MEQ/L (3.5-5.1); SODIUM LEVEL 145 MEQ/L (136-145); TOTAL PROTEIN 5.8 GM/DL (6.4-8.2); TRIGLYCERIDES LEVEL 111 MG/DL (<150)
== END ==
LOC: M LAB 07:03
PROVIDERS: ATTEND Internal Medicine
DX: I10 Essential (primary) hypertension (principal); E78.00 Pure hypercholesterolemia, unspecified

== ENCOUNTER → 2021-04-08 | Outpatient (REF) | LOC: M EMP 09:39 | PROVIDERS: ATTEND Family Medicine | DX: Z20.828 Contact with and (suspected) exposure to other viral communicable diseases (principal) ==

== ENCOUNTER → 2021-05-08 | Outpatient (CLI) | payer BC ==
[2021-05-08 08:42] LABS: BASO # 0.1 10^3/uL (0.0-0.2); BASO % 0.9 % (0.0-1.0); EOS # 0.4 10^3/uL (0.0-0.5); EOS % 5.8 % (0.0-3.0); HEMATOCRIT 37.6 % (36.0-47.0); HEMOGLOBIN 12.1 g/dl (12.0-15.5); LYMPH # 1.7 10^3/uL (1.5-5.0); MEAN CORPUSCULAR HEMOGLOBIN 29.5 pg (27.0-33.0); MEAN CORPUSCULAR HGB CONC 32.2 g/dl (32.0-36.5); MEAN CORPUSCULAR VOLUME 91.7 fl (80.0-96.0); MONO # 0.8 10^3/uL (0.0-0.8); MONO % 11.4 % (2.0-8.0); NEUTROPHILS # 3.9 10^3/uL (1.5-8.5); NEUTROPHILS % 56.6 % (36.0-66.0); PLATELET COUNT, AUTOMATED 313 10^3/uL (150-450); WHITE BLOOD COUNT 6.9 10^3/uL (4.0-10.0)
[2021-05-08 09:03] LABS: ERYTHROCYTE SEDIMENTATION RATE 9 mm/hr (0-30)
== END ==
LOC: M LAB 07:04
PROVIDERS: ATTEND Orthopaedic Surgery
DX: Z47.1 Aftercare following joint replacement surgery (principal)

== ENCOUNTER → 2021-06-12 | Outpatient (CLI) | payer BC ==
--- NOTE | 2021-06-12 13:44 | REP ---
INDICATION: PRESENCE OF ATRIFICIAL ODELL HIP JOINT. COMPARISON: None. TECHNIQUE/RADIOTRACER AND DOSE: After the intravenous administration of 22 mCi of technetium 99 M MDP a triple phase bone scan of the hips was obtained. FINDINGS: The patient is status post bilateral THR The flow portion of the examination shows no abnormal increased or decreased activity. Blood pool scintigraphy shows no abnormal increased or decreased radionuclide accumulation. Delayed imaging shows no abnormal increased or decreased radionuclide accumulation IMPRESSION: No abnormal activity. No evidence of prostatic loosening <Electronically signed by Ced Melton > 06/12/21 [id number]
== END ==
LOC: M RAD 10:04
PROVIDERS: ATTEND Orthopaedic Surgery
DX: Z96.643 Presence of artificial hip joint, bilateral (principal)
CPT/HCPCS: 78315; A9503

== ENCOUNTER → 2021-06-24 | Outpatient (REF) ==
[2021-06-24 16:31] LABS: RSV AMPLIFICATION NEGATIVE (NEGATIVE)
== END ==
LOC: M LABSMTC 13:44
PROVIDERS: ATTEND Family Medicine
DX: Z11.52 Encounter for screening for COVID-19 (principal)

== ENCOUNTER → 2021-09-12 | Outpatient (CLI) | payer BC ==
[2021-09-12 07:12] LABS: APPEARANCE, URINE CLEAR (CLEAR); BACTERIA, URINE AUTO NEGATIVE (NEGATIVE); BILIRUBIN, URINE AUTO NEGATIVE (NEGATIVE); BLOOD, URINE BLOOD 3+ (NEGATIVE); COLOR, URINE AMBER (YELLOW); GLUCOSE, URINE (UA) AUTO NEGATIVE (NEGATIVE); KETONE, URINE AUTO NEGATIVE (NEGATIVE); LEUKOCYTE ESTERASE, URINE AUTO 1+ (NEGATIVE); MUCUS, URINE SMALL (NEGATIVE); NITRITE, URINE AUTO POSITIVE (NEGATIVE); PROTEIN, URINE AUTO NEGATIVE (NEGATIVE); RBC, URINE AUTO 166 /HPF (0-3); SPECIFIC GRAVITY URINE AUTO 1.009 (1.002-1.035); SQUAMOUS EPITHELIAL CELL UR AU 2 /HPF (0-6); WBC, URINE AUTO 15 /HPF (0-3)
== END ==
LOC: M LAB 06:35
PROVIDERS: ATTEND Internal Medicine
DX: R30.0 Dysuria (principal)

== ENCOUNTER → 2021-10-02 | Outpatient (CLI) | payer BC ==
[~2021-10-02] MED LIST changes: -D31000TA2 PO; +VITA100093 PO
== END ==
LOC: M RAD 11:45
PROVIDERS: ATTEND Nurse Practitioner Women's Health
DX: N20.0 Calculus of kidney (principal)

== ENCOUNTER → 2021-11-20 | Outpatient (CLI) | payer BC | LOC: M WHC 08:03 | PROVIDERS: ATTEND Advanced Practice Midwife | DX: Z12.31 Encounter for screening mammogram for malignant neoplasm of breast (principal) ==

== ENCOUNTER → 2022-01-24 | Outpatient (REF) | payer BC | LOC: M LAB REF 15:17 | PROVIDERS: ATTEND Physician Assistant | DX: R30.0 Dysuria (principal) ==

== ENCOUNTER → 2022-02-10 | Outpatient (REF) | payer BC ==
[2022-02-10 14:38] LABS: ALBUMIN 3.6 GM/DL (3.2-5.2); ALT/SGPT 21 U/L (12-78); BILIRUBIN,TOTAL 0.5 MG/DL (0.2-1.0); BLOOD UREA NITROGEN 20 MG/DL (7-18); CALCIUM LEVEL 9.5 MG/DL (8.8-10.2); CARBON DIOXIDE LEVEL 27 MEQ/L (21-32); CHLORIDE LEVEL 113 MEQ/L (98-107); CHOLESTEROL LEVEL 251 MG/DL (<200); CHOLESTEROL RISK RATIO 3.302 (<5); CREATININE FOR GFR 0.97 MG/DL (0.55-1.30); GLOMERULAR FILTRATION RATE > 60.0 (>45); GLUCOSE, FASTING 89 MG/DL (70-100); HDL CHOLESTEROL 76 MG/DL (>40); LDL CHOLESTEROL 161 MG/DL (<100); NON-HDL-C 175 MG/DL; POTASSIUM SERUM 4.3 MEQ/L (3.5-5.1); SODIUM LEVEL 146 MEQ/L (136-145); TOTAL PROTEIN 5.9 GM/DL (6.4-8.2); TRIGLYCERIDES LEVEL 71 MG/DL (<150)
== END ==
LOC: M LABWUC 11:24
PROVIDERS: ATTEND Internal Medicine
DX: E78.00 Pure hypercholesterolemia, unspecified (principal); I10 Essential (primary) hypertension

== ENCOUNTER → 2022-04-22 | Outpatient (REF) | payer BC | LOC: M SFHCWAGY 08:19 | PROVIDERS: ATTEND Advanced Practice Midwife | DX: Z12.4 Encounter for screening for malignant neoplasm of cervix (principal); Z77.9 Other contact with and (suspected) exposures hazardous to health | CPT/HCPCS: 87624; G0123 ==

== ENCOUNTER → 2022-08-27 | Outpatient (CLI) | payer MEDICARE ==
[2022-08-27 10:04] LABS: HEMATOCRIT 39.9 % (36.0-47.0); HEMOGLOBIN 12.5 g/dl (12.0-15.5); MEAN CORPUSCULAR HEMOGLOBIN 29.1 pg (27.0-33.0); MEAN CORPUSCULAR HGB CONC 31.3 g/dl (32.0-36.5); MEAN CORPUSCULAR VOLUME 92.8 fl (80.0-96.0); PLATELET COUNT, AUTOMATED 331 10^3/uL (150-450); WHITE BLOOD COUNT 6.3 10^3/uL (4.0-10.0)
[2022-08-27 10:07] LABS: HEMOGLOBIN A1c 4.8 % (4.0-6.0)
[2022-08-27 10:33] LABS: CREATININE, URINE 62.4 MG/DL; MALB URINE SIEMENS < 3.0 MG/DL; MAU/CREAT RATIO 4.8 MCG/MG (0.0-30.0)
[2022-08-27 10:35] LABS: THYROID STIMULATING HORMONE 2.567 uIU/ML (0.55-4.78)
[2022-08-27 10:36] LABS: FREE T4 1.17 NG/DL (0.89-1.76)
[2022-08-27 10:37] LABS: C REACTIVE PROTEIN QUANTITATIV < 0.40 MG/DL (<1.0)
[2022-08-27 10:39] LABS: ALBUMIN 3.6 G/DL (3.2-5.2); ALKALINE PHOSPHATASE 80 U/L (46-116); ALT/SGPT 20 U/L (7.0-40); AST/SGOT 25 U/L (<34); BILIRUBIN,TOTAL 0.6 MG/DL (0.3-1.2); BLOOD UREA NITROGEN 19 MG/DL (9-23); CALCIUM LEVEL 9.6 MG/DL (8.3-10.6); CARBON DIOXIDE LEVEL 30 MMOL/L (20-31); CHLORIDE LEVEL 107 MMOL/L (98-107); CHOLESTEROL LEVEL 244 MG/DL (<200); CHOLESTEROL RISK RATIO 3.04 (<5); CREATININE FOR GFR 1.04 MG/DL (0.55-1.30); GLOMERULAR FILTRATION RATE 56.6 (>45); GLUCOSE, FASTING 86 MG/DL (74-106); HDL CHOLESTEROL 80.1 MG/DL (>40); LDL CHOLESTEROL 146.1 MG/DL (<100); NON-HDL-C 164 MG/DL; POTASSIUM SERUM 4.5 MMOL/L (3.5-5.1); SODIUM LEVEL 144 MMOL/L (136-145); TOTAL 25(OH) VITAMIN D 44.6 NG/ML (20.0-100.0); TRIGLYCERIDES LEVEL 89 MG/DL (<150)
[2022-08-27 10:43] LABS: VITAMIN B12 LEVEL > 2000 PG/ML (211-911)
== END ==
LOC: M LAB 08:11
PROVIDERS: ATTEND Internal Medicine Hematology
DX: E78.00 Pure hypercholesterolemia, unspecified (principal)

== ENCOUNTER → 2022-11-11 | Outpatient (CLI) | payer MEDICARE ==
[~2022-11-11] MED LIST changes: +MONT-5 PO; -SING10TA32 PO
== END ==
LOC: M PLAIMG 15:42
PROVIDERS: ATTEND Physician Assistant
DX: M54.50 Low back pain, unspecified (principal)

== ENCOUNTER → 2023-02-13 | Outpatient (CLI) | payer MEDICARE ==
[2023-02-13 07:03] LABS: HEMATOCRIT 37.6 % (36.0-47.0); HEMOGLOBIN 12.1 g/dl (12.0-15.5); MEAN CORPUSCULAR HEMOGLOBIN 29.5 pg (27.0-33.0); MEAN CORPUSCULAR HGB CONC 32.2 g/dl (32.0-36.5); MEAN CORPUSCULAR VOLUME 91.7 fl (80.0-96.0); PLATELET COUNT, AUTOMATED 308 10^3/uL (150-450); WHITE BLOOD COUNT 7.1 10^3/uL (4.0-10.0)
[2023-02-13 07:35] LABS: CREATININE, URINE 46.1 MG/DL; MALB URINE SIEMENS < 3.0 MG/L; MAU/CREAT RATIO 6.5 MCG/MG (0.0-30.0)
[2023-02-13 07:36] LABS: C REACTIVE PROTEIN QUANTITATIV < 0.40 MG/DL (<1.0)
[2023-02-13 07:38] LABS: FREE T4 1.11 NG/DL (0.89-1.76); THYROID STIMULATING HORMONE 2.059 uIU/ML (0.55-4.78); VITAMIN B12 LEVEL 1883 PG/ML (211-911)
[2023-02-13 07:39] LABS: TOTAL 25(OH) VITAMIN D 40.1 NG/ML (20.0-100.0)
[2023-02-13 07:40] LABS: ALBUMIN 3.3 G/DL (3.2-5.2); ALKALINE PHOSPHATASE 91 U/L (46-116); ALT/SGPT 23 U/L (7.0-40); AST/SGOT 15 U/L (<34); BILIRUBIN,TOTAL 0.5 MG/DL (0.3-1.2); BLOOD UREA NITROGEN 16 MG/DL (9-23); CALCIUM LEVEL 9.1 MG/DL (8.3-10.6); CARBON DIOXIDE LEVEL 27 MMOL/L (20-31); CHLORIDE LEVEL 109 MMOL/L (98-107); CHOLESTEROL LEVEL 212 MG/DL (<200); CREATININE FOR GFR 0.95 MG/DL (0.55-1.30); GLOMERULAR FILTRATION RATE > 60.0 (>45); GLUCOSE, FASTING 88 MG/DL (74-106); HDL CHOLESTEROL 70.6 MG/DL (>40); LDL CHOLESTEROL 122.8 MG/DL (<100); NON-HDL-C 141.4 MG/DL; POTASSIUM SERUM 4.2 MMOL/L (3.5-5.1); SODIUM LEVEL 142 MMOL/L (136-145); TOTAL PROTEIN 5.5 G/DL (5.7-8.2); TRIGLYCERIDES LEVEL 93 MG/DL (<150)
[2023-02-13 07:49] LABS: HEMOGLOBIN A1c 5.2 % (4.0-6.0)
== END ==
LOC: M LAB 06:15
PROVIDERS: ATTEND Internal Medicine Hematology
DX: I10 Essential (primary) hypertension (principal); M19.90 Unspecified osteoarthritis, unspecified site; F41.8 Other specified anxiety disorders; G89.29 Other chronic pain; M25.551 Pain in right hip; R42 Dizziness and giddiness; F34.1 Dysthymic disorder; E78.00 Pure hypercholesterolemia, unspecified; E55.9 Vitamin D deficiency, unspecified; Z98.84 Bariatric surgery status; M85.80 Other specified disorders of bone density and structure, unspecified site; Z79.899 Other long term (current) drug therapy

== ENCOUNTER → 2023-02-17 | Outpatient (CLI) | payer MEDICARE | LOC: M WHC 08:26 | PROVIDERS: ATTEND Internal Medicine Hematology | DX: Z12.31 Encounter for screening mammogram for malignant neoplasm of breast (principal) ==

== ENCOUNTER → 2023-02-26 | Outpatient (REF) | payer MEDICARE | LOC: M LAB REF 18:20 | PROVIDERS: ATTEND Student in an Organized Health Care Education/Training Program | DX: R30.0 Dysuria (principal) ==

== ENCOUNTER → 2023-08-21 | Outpatient (CLI) | payer MEDICARE | LOC: M PLALAB 08:29 → M PLAIMG 08:29 | PROVIDERS: ATTEND Nurse Practitioner Family | DX: M43.12 Spondylolisthesis, cervical region (principal); M54.2 Cervicalgia ==

== ENCOUNTER → 2023-09-15 | Outpatient (CLI) | payer MEDICARE ==
[2023-09-15 15:45] LABS: HEMATOCRIT 39.8 % (36.0-47.0); HEMOGLOBIN 12.9 g/dl (12.0-15.5); MEAN CORPUSCULAR HEMOGLOBIN 29.7 pg (27.0-33.0); MEAN CORPUSCULAR HGB CONC 32.4 g/dl (32.0-36.5); MEAN CORPUSCULAR VOLUME 91.5 fl (80.0-96.0); PLATELET COUNT, AUTOMATED 317 10^3/uL (150-450); RED BLOOD COUNT 4.35 10^6/uL (4.00-5.40); WHITE BLOOD COUNT 5.9 10^3/uL (4.0-10.0)
[2023-09-15 16:00] LABS: HEMOGLOBIN A1c 5.1 % (4.0-6.0)
[2023-09-15 16:10] LABS: CREATININE, URINE 73.6 MG/DL; MALB URINE SIEMENS < 3.0 MG/L
[2023-09-15 16:13] LABS: THYROID STIMULATING HORMONE 1.305 uIU/ML (0.55-4.78); TOTAL 25(OH) VITAMIN D 36.8 NG/ML (20.0-100.0)
[2023-09-15 16:14] LABS: VITAMIN B12 LEVEL 902 PG/ML (211-911)
[2023-09-15 16:15] LABS: FREE T4 0.97 NG/DL (0.89-1.76)
[2023-09-15 16:18] LABS: ALBUMIN 3.4 G/DL (3.2-5.2); ALKALINE PHOSPHATASE 81 U/L (46-116); ALT/SGPT 18 U/L (7.0-40); AST/SGOT 16 U/L (<34); BILIRUBIN,TOTAL 0.4 MG/DL (0.3-1.2); BLOOD UREA NITROGEN 16 MG/DL (9-23); CALCIUM LEVEL 9.3 MG/DL (8.3-10.6); CARBON DIOXIDE LEVEL 28 MMOL/L (20-31); CHLORIDE LEVEL 110 MMOL/L (98-107); CHOLESTEROL LEVEL 217 MG/DL (<200); CHOLESTEROL RISK RATIO 2.98 (<5); GLOMERULAR FILTRATION RATE > 60.0 (>45); GLUCOSE, FASTING 75 MG/DL (74-106); HDL CHOLESTEROL 72.8 MG/DL (>40); LDL CHOLESTEROL 130.8 MG/DL (<100); NON-HDL-C 144.2 MG/DL; POTASSIUM SERUM 4.1 MMOL/L (3.5-5.1); SODIUM LEVEL 140 MMOL/L (136-145); TRIGLYCERIDES LEVEL 67 MG/DL (<150)
== END ==
LOC: M PLALAB 14:43
PROVIDERS: ATTEND Internal Medicine Hematology
DX: E78.00 Pure hypercholesterolemia, unspecified (principal); E55.9 Vitamin D deficiency, unspecified; M85.80 Other specified disorders of bone density and structure, unspecified site; M19.90 Unspecified osteoarthritis, unspecified site; Z98.84 Bariatric surgery status; F41.9 Anxiety disorder, unspecified; F32.A Depression, unspecified; Z79.899 Other long term (current) drug therapy

== ENCOUNTER → 2023-10-12 | Outpatient (CLI) | payer MEDICARE | LOC: M WHC 08:13 | PROVIDERS: ATTEND Internal Medicine Hematology | DX: M81.0 Age-related osteoporosis without current pathological fracture (principal); Z13.820 Encounter for screening for osteoporosis ==

== ENCOUNTER → 2024-04-07 | Outpatient (CLI) | payer MEDICARE ==
[~2024-04-07] MED LIST changes: +BUPR-597 PO; -BUPR300T92 PO; +GABA-1490 PO; -GABA600T4 PO
[2024-04-07 10:35] LABS: BASO # 0.1 10^3/uL (0.0-0.2); BASO % 1.3 % (0.0-1.0); EOS # 0.5 10^3/uL (0.0-0.5); EOS % 7.5 % (0.0-3.0); HEMATOCRIT 38.8 % (36.0-47.0); HEMOGLOBIN 12.3 g/dl (12.0-15.5); LYMPH # 1.9 10^3/uL (1.5-5.0); LYMPH % 29.1 % (24.0-44.0); MEAN CORPUSCULAR HEMOGLOBIN 29.2 pg (27.0-33.0); MEAN CORPUSCULAR HGB CONC 31.7 g/dl (32.0-36.5); MEAN CORPUSCULAR VOLUME 92.2 fl (80.0-96.0); MONO # 0.6 10^3/uL (0.0-0.8); NEUTROPHILS # 3.3 10^3/uL (1.5-8.5); NEUTROPHILS % 51.9 % (36.0-66.0); PLATELET COUNT, AUTOMATED 332 10^3/uL (150-450); RED BLOOD COUNT 4.21 10^6/uL (4.00-5.40); WHITE BLOOD COUNT 6.4 10^3/uL (4.0-10.0)
[2024-04-07 10:50] LABS: MAU/CREAT RATIO 16.6 MCG/MG (0.0-30.0)
[2024-04-07 10:58] LABS: C REACTIVE PROTEIN QUANTITATIV < 0.40 MG/DL (<1.0)
[2024-04-07 11:00] LABS: ALBUMIN 3.3 G/DL (3.2-5.2); ALKALINE PHOSPHATASE 86 U/L (46-116); ALT/SGPT 19 U/L (7.0-40); AST/SGOT 16 U/L (<34); BILIRUBIN,TOTAL 0.6 MG/DL (0.3-1.2); BLOOD UREA NITROGEN 23 MG/DL (9-23); CARBON DIOXIDE LEVEL 28 MMOL/L (20-31); CHLORIDE LEVEL 110 MMOL/L (98-107); CHOLESTEROL LEVEL 230 MG/DL (<200); CHOLESTEROL RISK RATIO 2.97 (<5); CREATININE FOR GFR 0.99 MG/DL (0.55-1.30); GLOMERULAR FILTRATION RATE 59.7 (>45); GLUCOSE, FASTING 78 MG/DL (74-106); HDL CHOLESTEROL 77.3 MG/DL (>40); LDL CHOLESTEROL 134.3 MG/DL (<100); NON-HDL-C 152.7 MG/DL; POTASSIUM SERUM 4.2 MMOL/L (3.5-5.1); SODIUM LEVEL 142 MMOL/L (136-145); TOTAL PROTEIN 5.7 G/DL (5.7-8.2); TRIGLYCERIDES LEVEL 92 MG/DL (<150)
[2024-04-07 11:03] LABS: THYROID STIMULATING HORMONE 1.845 uIU/ML (0.55-4.78); TOTAL 25(OH) VITAMIN D 26.2 NG/ML (20.0-100.0)
[2024-04-07 11:04] LABS: FREE T4 1.02 NG/DL (0.89-1.76)
[2024-04-07 11:19] LABS: HEMOGLOBIN A1c 5.1 % (4.0-6.0); VITAMIN B12 LEVEL > 2000 PG/ML (211-911)
== END ==
LOC: M LAB 08:57
PROVIDERS: ATTEND Internal Medicine Hematology
DX: I10 Essential (primary) hypertension (principal); F41.8 Other specified anxiety disorders; N20.0 Calculus of kidney; Z79.890 Hormone replacement therapy; Z79.899 Other long term (current) drug therapy

== ENCOUNTER → 2024-05-10 | Outpatient (CLI) | payer MEDICARE | LOC: M RAD 08:26 | PROVIDERS: ATTEND Internal Medicine Hematology | DX: N20.0 Calculus of kidney (principal); K57.30 Diverticulosis of large intestine without perforation or abscess without bleeding; I70.0 Atherosclerosis of aorta; Z96.643 Presence of artificial hip joint, bilateral; K80.20 Calculus of gallbladder without cholecystitis without obstruction ==

== ENCOUNTER → 2024-05-31 | Outpatient (CLI) | payer MEDICARE | LOC: M WHC 15:15 | PROVIDERS: ATTEND Advanced Practice Midwife | DX: Z12.31 Encounter for screening mammogram for malignant neoplasm of breast (principal); R92.313 Mammographic fatty tissue density, bilateral breasts ==

== ENCOUNTER 2024-06-27 12:10 | Emergency (ER) | payer MEDICARE ==
[~2024-06-27] VITALS: Ht 172.7 cm; Wt 75.6 kg
[2024-06-27 18:01] VITALS: BP 132/66; TEMP 97.1; O2SAT 99
== END 2024-06-27 19:40 | disposition home or self-care (01) ==
LOC: M ED 12:10
DX: S06.0X0A Concussion without loss of consciousness, initial encounter (principal); W01.190A Fall on same level from slipping, tripping and stumbling with subsequent striking against furniture, initial encounter; Y92.009 Unspecified place in unspecified non-institutional (private) residence as the place of occurrence of the external cause; Y93.9 Activity, unspecified; Y99.9 Unspecified external cause status; I10 Essential (primary) hypertension; J45.909 Unspecified asthma, uncomplicated; M19.90 Unspecified osteoarthritis, unspecified site
CPT/HCPCS: 70450; 72125; 99283; G0463

== ENCOUNTER → 2024-07-27 | Outpatient (CLI) | payer MEDICARE ==
[~2024-07-27] MED LIST changes: +AMIT25TA19 PO; +CYCL-707 PO; +EYECAP2 PO; +IBAN150T10 PO; +LANS30CA93 PO; +MECL-86 PO; +MONT10TA97 PO
[2024-07-27 15:27] LABS: HEMATOCRIT 36.9 % (36.0-47.0); HEMOGLOBIN 11.8 g/dl (12.0-15.5); MEAN CORPUSCULAR HEMOGLOBIN 29.1 pg (27.0-33.0); MEAN CORPUSCULAR VOLUME 90.9 fl (80.0-96.0); PLATELET COUNT, AUTOMATED 297 10^3/uL (150-450); RED BLOOD COUNT 4.06 10^6/uL (4.00-5.40)
[2024-07-27 15:30] LABS: APPEARANCE, URINE HAZY (CLEAR); BACTERIA, URINE AUTO 2+ (NEGATIVE); BILIRUBIN, URINE AUTO NEGATIVE (NEGATIVE); BLOOD, URINE BLOOD NEGATIVE (NEGATIVE); COLOR, URINE YELLOW (YELLOW); GLUCOSE, URINE (UA) AUTO NEGATIVE (NEGATIVE); KETONE, URINE AUTO NEGATIVE (NEGATIVE); LEUKOCYTE ESTERASE, URINE AUTO 2+ (NEGATIVE); MUCUS, URINE SMALL (NEGATIVE); NITRITE, URINE AUTO POSITIVE (NEGATIVE); PROTEIN, URINE AUTO NEGATIVE (NEGATIVE); RBC, URINE AUTO 6 /HPF (0-3); SQUAMOUS EPITHELIAL CELL UR AU 1 /HPF (0-6); UROBILINOGEN, URINE AUTO 0.2 mg/dL (0.0-2.0); WBC, URINE AUTO 34 /HPF (0-3)
[2024-07-27 16:00] LABS: BLOOD UREA NITROGEN 19 MG/DL (9-23); CALCIUM LEVEL 9.3 MG/DL (8.3-10.6); CARBON DIOXIDE LEVEL 28 MMOL/L (20-31); CHLORIDE LEVEL 109 MMOL/L (98-107); CREATININE FOR GFR 0.84 MG/DL (0.55-1.30); GLOMERULAR FILTRATION RATE > 60.0 (>45); GLUCOSE, FASTING 88 MG/DL (74-106); POTASSIUM SERUM 3.8 MMOL/L (3.5-5.1); SODIUM LEVEL 143 MMOL/L (136-145)
== END ==
LOC: M RAD 14:34
PROVIDERS: ATTEND Nurse Practitioner Family
DX: Z01.818 Encounter for other preprocedural examination (principal); N20.0 Calculus of kidney

== ENCOUNTER 2024-08-05 08:21 | Day surgery (SDC) | payer MEDICARE ==
[~2024-08-05] VITALS: Ht 172.7 cm; Wt 73.9 kg
[~2024-08-05 08:21] MED LIST changes: +ceFAZolin SOD 2 GM in IV 1 EA IV ONE
[2024-08-05] MEDS ORDERED: LR 1,000 ML IV SCH ×2 (10:00→12:30)
[2024-08-05] MEDS ORDERED: ONDANSETRON 4MG 2ML VIAL As Ordered ONE (10:42)
[2024-08-05] MEDS ORDERED: propofoL 200 MG/20 ML VIAL As Ordered ONE (10:42)
[2024-08-05] MEDS ORDERED: LIDOCAINE 2% 100MG/5ML SDV (FOR ANES.) As Ordered ONE (10:42)
[2024-08-05] MEDS ORDERED: MIDAZOLAM INJ 2MG/2ML VIAL As Ordered ONE (10:42)
[2024-08-05] MEDS ORDERED: fentaNYL 100 MCG/2 ML INJECTION As Ordered ONE (10:42)
[2024-08-05] MEDS ORDERED: ACETAMINOPHEN 1000MG/100ML IV BAG As Ordered ONE (10:42)
[2024-08-05] MEDS ORDERED: PHENYLephrine 500MCG 5ML (100MCG/ML) SYRINGE As Ordered ONE (11:30)
[2024-08-05] MEDS: ISOVUE-300 61% 100ML VIAL As Ordered ONE (11:35)
[2024-08-05] MEDS ORDERED: ePHEDrine SULFATE 25 MG/5 ML(5MG/ML) SYRINGE As Ordered ONE (11:47)
[2024-08-05] MEDS ORDERED: KETOROLAC 60MG 2ML VIAL As Ordered ONE (11:52)
[2024-08-05] MEDS: ONDANSETRON 4MG 2ML VIAL IV PRN (12:51)
[2024-08-05] MEDS: oxyCODONE 5MG TAB PO PRN (12:51)
[2024-08-05] MEDS: HYDROMORPHONE HCL 0.5 MG/ 0.5 ML SYRINGE IV PRN (12:52)
[2024-08-05 13:30] VITALS: BP 121/61; TEMP 97.8; O2SAT 96
== END 2024-08-05 14:50 | disposition home or self-care (01) ==
LOC: M SDC 08:21
PROVIDERS: ATTEND Urology
DX: N13.2 Hydronephrosis with renal and ureteral calculous obstruction (principal); I10 Essential (primary) hypertension; K21.9 Gastro-esophageal reflux disease without esophagitis; J45.909 Unspecified asthma, uncomplicated; I49.3 Ventricular premature depolarization; Z79.899 Other long term (current) drug therapy; Z79.890 Hormone replacement therapy; Z98.84 Bariatric surgery status; Z88.0 Allergy status to penicillin; Z88.5 Allergy status to narcotic agent; Z88.8 Allergy status to other drugs, medicaments and biological substances; Z87.891 Personal history of nicotine dependence
CPT/HCPCS: 52356; 76000; 82365; C1769; C1894; C2617; J0131; J1100; J1171; J1885; J2250; J2371; J2405; J3010; Q9967

== ENCOUNTER → 2024-09-06 | Outpatient (CLI) | payer MEDICARE ==
[~2024-09-06] MED LIST changes: -ceFAZolin SOD 2 GM in IV 1 EA IV ONE
[2024-09-06 06:58] LABS: BASO # 0.1 10^3/uL (0.0-0.2); BASO % 1.1 % (0.0-1.0); EOS # 0.5 10^3/uL (0.0-0.5); HEMATOCRIT 37.6 % (36.0-47.0); HEMOGLOBIN 11.8 g/dl (12.0-15.5); LYMPH # 2.5 10^3/uL (1.5-5.0); LYMPH % 27.3 % (24.0-44.0); MEAN CORPUSCULAR HEMOGLOBIN 28.2 pg (27.0-33.0); MEAN CORPUSCULAR HGB CONC 31.4 g/dl (32.0-36.5); MEAN CORPUSCULAR VOLUME 89.7 fl (80.0-96.0); MONO % 11.5 % (2.0-8.0); NEUTROPHILS % 54.9 % (36.0-66.0); PLATELET COUNT, AUTOMATED 377 10^3/uL (150-450); RED BLOOD COUNT 4.19 10^6/uL (4.00-5.40); WHITE BLOOD COUNT 9.1 10^3/uL (4.0-10.0)
[2024-09-06 07:05] LABS: ERYTHROCYTE SEDIMENTATION RATE 32 mm/hr (0-30)
[2024-09-06 07:21] LABS: RHEUMATOID FACTOR QUANT 8.6 IU/ML (<14)
[2024-09-06 07:22] LABS: ALBUMIN 3.3 G/DL (3.2-5.2); ALKALINE PHOSPHATASE 78 U/L (35-104); ALT/SGPT 25 U/L (7.0-40); AST/SGOT 22 U/L (<34); BILIRUBIN,TOTAL 0.5 MG/DL (0.3-1.2); BLOOD UREA NITROGEN 23 MG/DL (9-23); CALCIUM LEVEL 9.3 MG/DL (8.3-10.6); CARBON DIOXIDE LEVEL 30 MMOL/L (20-31); CHLORIDE LEVEL 108 MMOL/L (98-107); GLOMERULAR FILTRATION RATE > 60.0 (>45); GLUCOSE, FASTING 86 MG/DL (74-106); POTASSIUM SERUM 4.1 MMOL/L (3.5-5.1); SODIUM LEVEL 142 MMOL/L (136-145); TOTAL PROTEIN 6.2 G/DL (5.7-8.2)
[2024-09-06 07:24] LABS: FOLATE > 24.0 NG/ML (>5.4); THYROID STIMULATING HORMONE 5.982 uIU/ML (0.55-4.78)
[2024-09-06 07:29] LABS: VITAMIN B12 LEVEL > 2000 PG/ML (211-911)
[2024-09-07 16:27] LABS: ANA PATTERN Nuclear, Homogeneous (NEGATIVE); ANA PATTERN 2 Nuclear, Speckled; ANA SCREEN, IFA POSITIVE (NEGATIVE); ANA TITER 1:40 titer (<1:40); ANA TITER 2 1:40 titer (NEGATIVE)
== END ==
LOC: M LAB 06:18
PROVIDERS: ATTEND Psychiatry & Neurology Neurology
DX: R41.9 Unspecified symptoms and signs involving cognitive functions and awareness (principal)

== ENCOUNTER → 2025-02-07 | Outpatient (CLI) | payer MEDICARE ==
[~2025-02-07] MED LIST changes: -BUPR-597 PO; +BUPR-766 PO; -FLOM0.4C39 PO; +TAMS-18 PO
== END ==
LOC: M RAD 16:25
PROVIDERS: ATTEND Student in an Organized Health Care Education/Training Program
DX: M25.511 Pain in right shoulder (principal)

== ENCOUNTER → 2025-02-24 | Outpatient (CLI) | payer MEDICARE | LOC: M PLAIMG 10:15 | PROVIDERS: ATTEND Nurse Practitioner Family | DX: Z09 Encounter for follow-up examination after completed treatment for conditions other than malignant neoplasm (principal); Z87.442 Personal history of urinary calculi ==

== ENCOUNTER → 2025-03-21 | Outpatient (CLI) | payer MEDICARE ==
[2025-03-21 08:14] LABS: TOTAL 25(OH) VITAMIN D 31.3 NG/ML (20.0-100.0)
[2025-03-21 08:22] LABS: ALT/SGPT 22.0 U/L (7.0-40); AST/SGOT 23.0 U/L (<34); CALCIUM LEVEL 9.8 MG/DL (8.3-10.6); CARBON DIOXIDE LEVEL 29.0 MMOL/L (20-31); CHLORIDE LEVEL 109.0 MMOL/L (98-107); CHOLESTEROL LEVEL 225.0 MG/DL (<200); CHOLESTEROL RISK RATIO 2.85 (<5); CREATININE FOR GFR 0.96 MG/DL (0.55-1.30); FREE T4 1.19 NG/DL (0.89-1.76); GLOMERULAR FILTRATION RATE 64.9 (>45); LDL CHOLESTEROL 132.7 MG/DL (<100); NON-HDL-C 146.3 MG/DL; POTASSIUM SERUM 4.6 MMOL/L (3.5-5.1); SODIUM LEVEL 147.0 MMOL/L (136-145); TRIGLYCERIDES LEVEL 68.0 MG/DL (<150)
== END ==
LOC: M LAB 07:10
PROVIDERS: ATTEND Family Medicine
DX: R79.89 Other specified abnormal findings of blood chemistry (principal); I10 Essential (primary) hypertension; Z79.899 Other long term (current) drug therapy

== ENCOUNTER 2025-06-03 09:30 | Observation (INO) | payer MEDICARE ==
[2025-06-03] VITALS (12 sets, daily range): BP systolic 104–120; BP diastolic 55–63; TEMP 97.2–98.2; O2SAT 93–99
[~2025-06-03] VITALS: Ht 170.2 cm; Wt 71.0 kg
[2025-06-03] MEDS ORDERED: ISOVUE-370 76% 100 ML VIAL As Ordered ONE (10:02)
[2025-06-03 10:07] LABS: BASO # 0.1 10^3/uL (0.0-0.2); BASO % 0.8 % (0.0-1.0); EOS # 0.3 10^3/uL (0.0-0.5); EOS % 4.1 % (0.0-3.0); LYMPH # 2.0 10^3/uL (1.5-5.0); LYMPH % 28.4 % (24.0-44.0); MONO # 0.8 10^3/uL (0.0-0.8); MONO % 11.3 % (2.0-8.0); NEUTROPHILS # 4.0 10^3/uL (1.5-8.5); NEUTROPHILS % 55.1 % (36.0-66.0); PLATELET COUNT, AUTOMATED 386 10^3/uL (150-450)
[2025-06-03 10:32] LABS: CK-MB VALUE MASS 1.8 NG/ML (<3.6); ETHYL ALCOHOL (ETHANOL) 0.008 % (0.000-0.010)
[2025-06-03 10:34] LABS: ALT/SGPT 18 U/L (7.0-40); AST/SGOT 22 U/L (<34); CALCIUM LEVEL 9.3 MG/DL (8.3-10.6); CARBON DIOXIDE LEVEL 27 MMOL/L (20-31); CHLORIDE LEVEL 106 MMOL/L (98-107); CREATININE FOR GFR 0.94 MG/DL (0.55-1.30); GLOMERULAR FILTRATION RATE 66.5 (>45); POTASSIUM SERUM 4.1 MMOL/L (3.5-5.1); SALICYLATE LEVEL < 3.0 MG/DL (<30); SODIUM LEVEL 143 MMOL/L (136-145)
[2025-06-03] MEDS: NS 500 ML IV ONE (10:34)
[2025-06-03 10:38] LABS: CPK CREATINE PHOSPHOKINASE 73 U/L (34-145); MB/CK RELATIVE INDEX 2.46 (< OR =4)
[2025-06-03 10:39] LABS: INR 0.91
[2025-06-03 11:51] LABS: CK-MB VALUE MASS 1.3 NG/ML (<3.6)
[2025-06-03 11:53] LABS: CPK CREATINE PHOSPHOKINASE 61 U/L (34-145); MB/CK RELATIVE INDEX 2.13 (< OR =4)
[2025-06-03] MEDS ORDERED: MOM 30 ML SUSPENSION UDC PO PRN (13:35)
[2025-06-03] MEDS ORDERED: ACETAMINOPHEN 325 MG TAB PO PRN (13:35)
[2025-06-03] MEDS ORDERED: PRES10CA2 PO (14:03)
[2025-06-03] MEDS ORDERED: SF 51.1C TOP (14:03)
[2025-06-03] MEDS ORDERED: HOME MED LIST COMPLETE! XX SCH (14:15)
[2025-06-03 14:25] LABS: AMPHETAMINES LEVEL URINE NEGATIVE (NEGATIVE); BARBITURATES URINE NEGATIVE (NEGATIVE); BENZODIAZEPINES URINE NEGATIVE (NEGATIVE); CANNABINOIDS URINE NEGATIVE (NEGATIVE); COCAINE METABOLITE URINE NEGATIVE (NEGATIVE); METHADONE URINE NEGATIVE (NEGATIVE); OPIATES URINE NEGATIVE (NEGATIVE); PHENCYCLIDINE URINE NEGATIVE (NEGATIVE)
[2025-06-04] VITALS: O2SAT 94
[2025-06-04 03:47] VITALS: BP 110/57; TEMP 97.1; O2SAT 95
[2025-06-04 05:10] LABS: PLATELET COUNT, AUTOMATED 325 10^3/uL (150-450)
[2025-06-04 05:34] LABS: ALT/SGPT 14.0 U/L (7.0-40); AST/SGOT 16.0 U/L (<34); CALCIUM LEVEL 8.7 MG/DL (8.3-10.6); CARBON DIOXIDE LEVEL 28.0 MMOL/L (20-31); CHLORIDE LEVEL 107.0 MMOL/L (98-107); CREATININE FOR GFR 0.86 MG/DL (0.55-1.30); GLOMERULAR FILTRATION RATE 74.0 (>45); MAGNESIUM LEVEL 1.8 MG/DL (1.8-2.4); POTASSIUM SERUM 3.8 MMOL/L (3.5-5.1); SODIUM LEVEL 143.0 MMOL/L (136-145)
[2025-06-04 07:20] VITALS: BP 118/55; TEMP 97.5; O2SAT 97
[2025-06-04] MEDS ORDERED: MECLIZINE 25 MG TABLET PO PRN (08:20)
[2025-06-04] MEDS ORDERED: buPROPion **XL** 150 MG TABLET PO SCH (09:00)
[2025-06-04] MEDS: MONTELUKAST 10 MG TAB PO SCH (09:41)
[2025-06-04] MEDS: VITAMIN D 1,000 INTERNATIONAL UNITS TABLET PO SCH (09:41)
[2025-06-04] MEDS: buPROPion **XL** 150 MG TABLET PO SCH (09:42)
[2025-06-04] MEDS: PANTOPRAZOLE 40MG TAB PO SCH (09:42)
[2025-06-04] MEDS ORDERED: GABAPENTIN 300 MG CAP PO SCH (21:00)
== END 2025-06-04 14:53 | disposition home or self-care (01) ==
LOC: M ED 09:30 → M ED INP 13:28 → M PCU 14:52
PROVIDERS: ADMIT Internal Medicine; ATTEND Internal Medicine
DX: G93.41 Metabolic encephalopathy (principal); D64.9 Anemia, unspecified; I10 Essential (primary) hypertension; J45.909 Unspecified asthma, uncomplicated; F41.9 Anxiety disorder, unspecified; F32.A Depression, unspecified; M81.0 Age-related osteoporosis without current pathological fracture; H81.10 Benign paroxysmal vertigo, unspecified ear; K21.9 Gastro-esophageal reflux disease without esophagitis; E78.5 Hyperlipidemia, unspecified; Z79.899 Other long term (current) drug therapy
CPT/HCPCS: 36415; 70450; 70496; 70498; 70551; 71045; 80047; 80048; 80053; 80076; 80143; 80307; 82077; 82550; 82553; 83735; 84443; 84484; 85025; 85027; 85610; 85730; 93005; 93041; 94760; 96374; 99285; G0378; Q9967

== ENCOUNTER → 2025-06-06 | Outpatient (CLI) | payer MEDICARE ==
[~2025-06-06] MED LIST changes: +PRES10CA2 PO; +SF 51.1C TOP
== END ==
LOC: M WHC 15:02
PROVIDERS: ATTEND Advanced Practice Midwife
DX: Z12.31 Encounter for screening mammogram for malignant neoplasm of breast (principal); R92.8 Other abnormal and inconclusive findings on diagnostic imaging of breast

== ENCOUNTER → 2025-07-03 | Outpatient (CLI) | payer MEDICARE | LOC: M WHC 15:09 | PROVIDERS: ATTEND Advanced Practice Midwife | DX: Z12.31 Encounter for screening mammogram for malignant neoplasm of breast (principal); N64.2 Atrophy of breast | CPT/HCPCS: 77065; G0279 ==